=== PATIENT | female | born 1995 | race Caucasian/White ===

== ENCOUNTER 2017-08-22 15:02 | Emergency (ER) | payer MEDICAID ==
[2017-08-22 16:16] LABS: HEMATOCRIT 38.5 % (35.0-47.0); HEMOGLOBIN 13.3 gm/dl (11.6-16.0); MEAN CORPUSCULAR HEMOGLOBIN 32.1 pg (27-33); MEAN CORPUSCULAR HGB CONC 34.5 g/dl (32-36); MEAN PLATELET VOLUME 10.3 fl (7.4-10.4); PLATELET COUNT 195 K/uL (130-400); RED BLOOD COUNT 4.14 M/uL (3.80-5.40); RED CELL DISTRIBUTION WIDTH 11.8 % (11.5-14.5); WHITE BLOOD COUNT W/O DIFF 14.1 K/uL (4.2-12.2)
[2017-08-22 16:22] LABS: URINE APPEARANCE SL CLOUDY; URINE BILIRUBIN NEGATIVE (NEGATIVE); URINE BLOOD MODERATE (NEGATIVE); URINE COLOR YELLOW; URINE GLUCOSE (UA) NEGATIVE (NEGATIVE); URINE KETONE NEGATIVE (NEGATIVE); URINE LEUKOCYTE ESTERASE NEGATIVE (NEGATIVE); URINE NITRITE POSITIVE (NEGATIVE); URINE PROTEIN NEGATIVE (NEGATIVE); URINE UROBILINOGEN 0.2 E.U./dL (0.20 - 1.00)
[2017-08-22 16:36] LABS: URINE BACTERIA 4+
[2017-08-22 16:37] LABS: HCG,QUALITATIVE URINE NEGATIVE (NEGATIVE)
--- NOTE | 2017-08-22 17:06 | Emergency Department Record ---
History of Present Illness - General Chief complaint: ENT Stated complaint: SORE THROAT Time Seen by Provider: 08/22/17 15:42 Source: Patient Mode of Arrival: Ambulatory Limitations: No limitations - History of Present Illness Initial comments: pt has a sore throat and ap that is crampy. she does not know if she is . complaint: Sore throat Onset/Timin -: Days(s) Location: Throat Severity: Mild Severity scale (1-10): 4 Quality: Aching Consistency: Constant Improves with: None Worsens with: None Associated Symptoms: Pain with swallowing, Sore throat, Other (abd cramping) - Related Data Previous Rx's Medication Instructions Recorded Cephalexin [Keflex] 500 mg PO BID #20 cap 08/22/17 Allergies Allergy/AdvReac Type Severity Reaction Status Date / Time red dye AdvReac VOMITING Verified 08/22/17 15:13 Travel Screening - Travel/Exposure Within Last 30 Days Have you traveled within the last 30 days?: No Review of Systems Reviewed: No additional complaints except as noted below Constitutional: Reports: As per HPI. Denies: Chills, Fever, Malaise, Night sweats, Weakness, Weight change Eyes: Reports: As per HPI. Denies: Eye discharge, Eye pain, Photophobia, Vision change ENT: Reports: As per HPI. Denies: Congestion, Dental pain, Ear pain, Epistaxis , Hearing loss, Throat pain Respiratory: Reports: As per HPI. Denies: Cough, Dyspnea, Hemoptysis, Stridor, Wheezes Cardiovascular: Reports: As per HPI. Denies: Arrhythmia, Chest pain, Dyspnea on exertion, Edema, Murmurs, Orthopnea, Palpitations, Paroxysmal nocturnal dyspnea, Rheumatic Fever, Syncope Endocrine: Reports: As per HPI. Denies: Fatigue, Heat or cold intolerance, Polydipsia, Polyuria Gastrointestinal: Reports: As per HPI. Denies: Abdominal pain, Constipation, Diarrhea, Hematemesis, Hematochezia, Melena, Nausea, Vomiting Genitourinary: Reports: As per HPI. Denies: Abnormal menses, Discharge, Dyspareunia, Dysuria, Frequency, Hematuria, Incontinence, Retention, Urgency Musculoskeletal: Reports: As per HPI. Denies: Arthralgia, Back pain, Gout, Joint swelling, Myalgia, Neck pain Skin: Reports: As per HPI. Denies: Bruising, Change in color, Change in hair/ nails, Lesions, Pruritus, Rash Neurological: Reports: As per HPI. Denies: Abnormal gait, Confusion, Headache, Numbness, Paresthesias, Seizure, Tingling, Tremors, Vertigo, Weakness Psychiatric: Reports: As per HPI. Denies: Anxiety, Auditory hallucinations, Depression, Homicidal thoughts, Suicidal thoughts, Visual hallucinations Hematological/Lymphatic: Reports: As per HPI. Denies: Anemia, Blood Clots, Easy bleeding, Easy bruising, Swollen glands Past Medical History - SOCIAL HISTORY Smoking Status: Current every day smoker Alcohol Use: None Drug Use: None - RESPIRATORY Hx Respiratory Disorders: No - CARDIOVASCULAR Hx Cardio Disorders: No - NEURO Hx Neuro Disorders: No - GI Hx GI Disorders: No - Hx Genitourinary Disorders: No - ENDOCRINE Hx Endocrine Disorders: No - MUSCULOSKELETAL Hx Musculoskeletal Disorders: No - PSYCH Hx Psych Problems: No - HEMATOLOGY/ONCOLOGY Hx Hematology/Oncology Disorders: No Family Medical History Any Significant Family History?: No Physical Exam - General General Appearance: Alert, Oriented x3, Cooperative, Mild distress - Head Head exam: Normal inspection - Eye Eye exam: Normal appearance, PERRL, EOMI Pupils: Normal accommodation - ENT ENT exam: Normal exam, Mucous membranes moist, Normal external ear exam, Normal orophraynx Ear exam: Normal external inspection. negative: External canal tenderness Nasal Exam: Normal inspection. negative: Discharge, Sinus tenderness Mouth exam: Normal external inspection, Tongue normal Teeth exam: Normal inspection. negative: Dental caries Throat exam: Tonsillar erythema. negative: Tonsillar exudate - Neck Neck exam: Normal inspection, Full ROM. negative: Tenderness - Respiratory Respiratory exam: Normal lung sounds bilaterally. negative: Respiratory distress - Cardiovascular Cardiovascular Exam: Regular rate, Normal rhythm, Normal heart sounds - GI/Abdominal GI/Abdominal exam: Soft, Normal bowel sounds. negative: Tenderness - Rectal Rectal exam: Deferred - exam: Deferred - Extremities Extremities exam: Normal inspection, Full ROM, Normal capillary refill. negative: Tenderness - Back Back exam: Reports: Normal inspection, Full ROM. Denies: Muscle spasm, Rash noted, Tenderness - Neurological Neurological exam: Alert, CN II-XII intact, Normal gait, Oriented X3 - Psychiatric Psychiatric exam: Normal affect, Normal mood - Skin Skin exam: Dry, Intact, Normal color, Warm Course Vital Signs 08/22/17 15:11 Temperature 100.4 F H Pulse Rate 105 H Respiratory 20 Rate Blood Pressure 121/68 Pulse Ox 99 Medical Decision Making - Lab Data Result diagrams: 08/22/17 16:02 Lab Results 08/22/17 08/22/17 08/22/17 Range/Units 15:20 16:02 16:02 WBC 14.1 H (4.2-12.2) K/uL RBC 4.14 (3.80-5.40) M/uL Hgb 13.3 (11.6-16.0) gm/dl Hct 38.5 (35.0-47.0) % MCV 93.0 (81-97) fl MCH 32.1 (27-33) pg MCHC 34.5 (32-36) g/dl RDW 11.8 (11.5-14.5) % Plt Count 195 (130-400) K/uL MPV 10.3 (7.4-10.4) fl Neutrophils % 85.0 H (47-80) % Eosinophils % Not Reportable Basophils % Not Reportable Lymphocytes 9.0 L (16-45) % Monocytes 6.0 (0-9) % Urine Color Yellow Urine Appearance Sl cloudy Urine pH 6.0 (5.0-8.0) Ur Specific [place] 1.015 (1.002-1.030) Urine Protein Negative (NEGATIVE) Urine Glucose (UA) Negative (NEGATIVE) Urine Ketones Negative (NEGATIVE) Urine Blood Moderate (NEGATIVE) Urine Nitrite Positive H (NEGATIVE) Urine Bilirubin Negative (NEGATIVE) Urine Urobilinogen 0.2 (0.20 - 1.00) E.U./dL Ur Leukocyte Esterase Negative (NEGATIVE) Urine RBC 7 - 10 (NONE SEEN) Urine WBC 3 - 5 (0-2/hpf) U Non-Squamous Epi Cells 7 - 10 /hpf Urine Bacteria 4+ Urine HCG, Qual Negative (NEGATIVE) Monoscreen (NEGATIVE) Group A Strep Screen Negative (NEGATIVE) 08/22/17 Range/Units 16:02 WBC (4.2-12.2) K/uL RBC (3.80-5.40) M/uL Hgb (11.6-16.0) gm/dl Hct (35.0-47.0) % MCV (81-97) fl MCH (27-33) pg MCHC (32-36) g/dl RDW (11.5-14.5) % Plt Count (130-400) K/uL MPV (7.4-10.4) fl Neutrophils % (47-80) % Eosinophils % Basophils % Lymphocytes (16-45) % Monocytes (0-9) % Urine Color Urine Appearance Urine pH (5.0-8.0) Ur Specific [place] (1.002-1.030) Urine Protein (NEGATIVE) Urine Glucose (UA) (NEGATIVE) Urine Ketones (NEGATIVE) Urine Blood (NEGATIVE) Urine Nitrite (NEGATIVE) Urine Bilirubin (NEGATIVE) Urine Urobilinogen (0.20 - 1.00) E.U./dL Ur Leukocyte Esterase (NEGATIVE) Urine RBC (NONE SEEN) Urine WBC (0-2/hpf) U Non-Squamous Epi Cells /hpf Urine Bacteria Urine HCG, Qual (NEGATIVE) Monoscreen Negative (NEGATIVE) Group A Strep Screen (NEGATIVE) Disposition Disposition: Discharge Clinical Impression: Pharyngitis Qualifiers: Pharyngitis/tonsillitis etiology: unspecified etiology Qualified Code(s): J02.9 - Acute pharyngitis, unspecified UTI (urinary tract infection) Qualifiers: Urinary tract infection type: acute cystitis Hematuria presence: without hematuria Qualified Code(s): N30.00 - Acute cystitis without hematuria Disposition: Home, Self-Care Condition: (1) Good Instructions: Pharyngitis (ED), Urinary Tract Infection in Women (ED) Additional Instructions: follow up with family doctor. return sooner if worse. push fluids Prescriptions: Cephalexin [Keflex] 500 mg PO BID #20 cap Quality - Quality Measures Quality Measures: N/A - Blood Pressure Screening Does Patient Have Any of the Following: No Blood Pressure Classification: Pre-Hypertensive BP Reading Systolic Measurement: 121 Diastolic Measurement: 68 Screening for High Blood Pressure: < Pre-Hypertensive BP, F/U Documented > [ G8950] Pre-Hypertensive Follow-up Interventions: Follow-up with rescreen every year.
== END 2017-08-22 17:11 | disposition home or self-care (01) ==
LOC: ER 15:02
DX: J02.9 Acute pharyngitis, unspecified (principal); N30.00 Acute cystitis without hematuria; F17.210 Nicotine dependence, cigarettes, uncomplicated
CPT/HCPCS: 81001; 81025; 85027; 86308; 87880; 99283

== ENCOUNTER 2017-12-27 21:22 | Emergency (ER) | payer MEDICAID ==
--- NOTE | 2017-12-27 21:44 | Emergency Department Record ---
History of Present Illness - General Chief Complaint: Cough Stated Complaint: COUGH,FEVER,SORE THROAT Time Seen by Provider: 12/27/17 21:40 Source: Patient Mode of Arrival: Ambulatory Limitations: No limitations - History of Present Illness Initial Comments: 22 yo female presents to ED for evaluation of cough, sore throat, and body aches that began 3 days ago. Patient reports that she has been using her inhaler at home which has improved some of her symptoms, denies health problems at her baseline. Patient's roommate has been ill with similar symptoms as well. MD Complaint: Cough, Nasal congestion, Sore throat Onset/Timin -: Days(s) Severity: Mild Quality: Aching Consistency: Constant Improves With: Nothing Worsens With: Nothing Context: Sick contacts Associated Symptoms: Cough, Sore throat - Related Data Previous Rx's Medication Instructions Recorded Albuterol Sulfate [Proair Hfa] 1 - 2 puff IH .EVERY 4-6 HOURS PRN 12/27/17 #1 inhaler Oseltamivir Phosphate [Tamiflu] 75 mg PO BID #10 capsule 12/27/17 Allergies Allergy/AdvReac Type Severity Reaction Status Date / Time red dye AdvReac VOMITING Verified 08/22/17 15:13 Travel Screening - Travel/Exposure Within Last 30 Days Have you traveled within the last 30 days?: No - Travel/Exposure Within Last Year Have you traveled outside the [place] in the last year?: No - Additonal Travel Details Have you been exposed to anyone with a communicable illness?: No - Travel Symptoms Symptom Screening: None Review of Systems Constitutional: Denies: Chills, Fever, Malaise, Night sweats Eyes: Denies: Eye discharge, Eye pain ENT: Reports: Congestion. Denies: Ear pain, Epistaxis Respiratory: Reports: Cough. Denies: Dyspnea Cardiovascular: Denies: Chest pain, Dyspnea on exertion Endocrine: Reports: Fatigue. Denies: Heat or cold intolerance Gastrointestinal: Denies: Abdominal pain, Nausea, Vomiting Genitourinary: Denies: Incontinence, Retention Musculoskeletal: Denies: Back pain, Gout Skin: Denies: Bruising, Change in color Neurological: Denies: Abnormal gait, Confusion, Headache, Seizure Psychiatric: Denies: Anxiety Hematological/Lymphatic: Denies: Anemia, Blood Clots Past Medical History - SOCIAL HISTORY Smoking Status: Current every day smoker Alcohol Use: None Drug Use: None - RESPIRATORY Hx Respiratory Disorders: No - CARDIOVASCULAR Hx Cardio Disorders: No - NEURO Hx Neuro Disorders: No - GI Hx GI Disorders: No - Hx Genitourinary Disorders: No - ENDOCRINE Hx Endocrine Disorders: No - MUSCULOSKELETAL Hx Musculoskeletal Disorders: No - PSYCH Hx Psych Problems: No - HEMATOLOGY/ONCOLOGY Hx Hematology/Oncology Disorders: No Family Medical History Any Significant Family History?: No Physical Exam - General General Appearance: Alert, Oriented x3, Cooperative, No acute distress Limitations: No limitations - Head Head exam: Atraumatic, Normocephalic, Normal inspection Head exam detail: negative: Abrasion, Contusion, Harper's sign, General tenderness, Hematoma, Laceration - Eye Eye exam: Normal appearance. negative: Conjunctival injection, Periorbital swelling, Periorbital tenderness, Scleral icterus - ENT Ear exam: negative: Auricular hematoma, Auricular trauma Nasal Exam: negative: Active bleeding, Discharge, Dried blood, Foreign body Mouth exam: negative: Drooling, Laceration, Muffled voice, Tongue elevation Throat exam: Tonsillar erythema. negative: Tonsillomegaly, R peritonsillar mass , L peritonsillar mass - Neck Neck exam: Normal inspection. negative: Meningismus, Tenderness - Respiratory Respiratory exam: Normal lung sounds bilaterally. negative: Rales, Respiratory distress, Rhonchi, Stridor - Cardiovascular Cardiovascular Exam: Regular rate, Normal rhythm, Normal heart sounds - GI/Abdominal GI/Abdominal exam: Soft. negative: Rebound, Rigid, Tenderness - Rectal Rectal exam: Deferred - exam: Deferred - Extremities Extremities exam: Normal inspection. negative: Calf tenderness, Pedal edema, Tenderness - Back Back exam: Denies: CVA tenderness (R), CVA tenderness (L) - Neurological Neurological exam: Alert, Normal gait, Oriented X3 - Psychiatric Psychiatric exam: Normal affect, Normal mood - Skin Skin exam: Normal color. negative: Abrasion Type of lesion: negative: abrasion Course Vital Signs 12/27/17 21:32 Temperature 98.4 F Pulse Rate [ 78 Pulse Ox Probe] Respiratory 20 Rate Blood Pressure 124/72 [Left Arm] Pulse Ox 99 - Reevaluation(s) Reevaluation #1: 12/27/17 22:00 Influenza: Negative Strep: Negative Patient's roommate however is Influenza B positive, will treat the patient with Tamiflu as her symptoms are likely the result of exposure. Disposition Disposition: Discharge Clinical Impression: URI (upper respiratory infection) Qualifiers: URI type: unspecified URI Qualified Code(s): J06.9 - Acute upper respiratory infection, unspecified Disposition: Home, Self-Care Condition: (2) Stable Instructions: Upper Respiratory Infection (ED) Additional Instructions: Return to ED if your symptoms worsen or if you have any concerns. Tamiflu as directed. Follow-up with your family doctor in 3-5 days as directed. Prescriptions: Albuterol Sulfate [Proair Hfa] 1 - 2 puff IH .EVERY 4-6 HOURS PRN #1 inhaler PRN Reason: Difficulty In Breathing Oseltamivir Phosphate [Tamiflu] 75 mg PO BID #10 capsule Forms: Patient Portal Access Time of Disposition: 22:02 Quality - Quality Measures Quality Measures: N/A - Blood Pressure Screening Does Patient Have Any of the Following: No Blood Pressure Classification: Pre-Hypertensive BP Reading Systolic Measurement: 124 Diastolic Measurement: 72 Screening for High Blood Pressure: < Pre-Hypertensive BP, F/U Documented > [ G8950] Pre-Hypertensive Follow-up Interventions: Referral to alternative/primary care provider.
[2017-12-27 22:00] LABS: INFLUENZA A NEGATIVE (NEGATIVE); INFLUENZA B NEGATIVE (NEGATIVE); STREP A SCREEN NEGATIVE (NEGATIVE)
== END 2017-12-27 22:25 | disposition home or self-care (01) ==
LOC: ER 21:22
DX: J06.9 Acute upper respiratory infection, unspecified (principal); R05 Cough; F17.210 Nicotine dependence, cigarettes, uncomplicated
CPT/HCPCS: 87400; 87880; 99282

== ENCOUNTER 2018-01-01 18:32 | Emergency (ER) | payer MEDICAID ==
--- NOTE | 2018-01-01 18:52 | Emergency Department Record ---
History of Present Illness - General Chief Complaint: Cough Stated Complaint: COUGH Time Seen by Provider: 01/01/18 18:48 Source: Patient Mode of Arrival: Ambulatory Limitations: No limitations - History of Present Illness Initial Comments: 22 yo female presents to ED for evaluation of continued cough symptoms following recent ED visit for sore throat symptoms, reports that her roommate was positive for influenza at that time, she tested negative. Patient denies fevers, chills, or body aches. Patient reports that she was at a job interview earlier today and is concerned about starting her training with her cough, is requesting treatment for her cough symptoms. MD Complaint: Cough Onset/Timin -: Week(s) Consistency: Constant Improves With: Nothing Worsens With: Nothing Associated Symptoms: Denies other symptoms Treatments Prior to Arrival: "Cold medicine" - Related Data Previous Rx's Medication Instructions Recorded Albuterol Sulfate [Proair Hfa] 1 - 2 puff IH .EVERY 4-6 HOURS PRN 12/27/17 #1 inhaler Benzonatate [Tessalon] 2 cap PO Q8H PRN #20 cap 01/01/18 Prednisone [Prednisone 20Mg] 20 mg PO TID #15 tab 01/01/18 Allergies Allergy/AdvReac Type Severity Reaction Status Date / Time red dye AdvReac VOMITING Verified 01/01/18 18:45 Travel Screening - Travel/Exposure Within Last 30 Days Have you traveled within the last 30 days?: No - Travel/Exposure Within Last Year Have you traveled outside the [place] in the last year?: No - Additonal Travel Details Have you been exposed to anyone with a communicable illness?: No - Travel Symptoms Symptom Screening: None Review of Systems Constitutional: Denies: Chills, Fever, Malaise, Night sweats Eyes: Denies: Eye discharge, Eye pain ENT: Denies: Congestion, Ear pain, Epistaxis Respiratory: Reports: Cough. Denies: Dyspnea Cardiovascular: Denies: Chest pain, Dyspnea on exertion Endocrine: Denies: Fatigue, Heat or cold intolerance Gastrointestinal: Denies: Abdominal pain, Nausea, Vomiting Genitourinary: Denies: Incontinence, Retention Musculoskeletal: Denies: Arthralgia, Back pain Skin: Denies: Bruising, Change in color Neurological: Denies: Abnormal gait, Confusion, Headache, Numbness, Tingling Psychiatric: Denies: Anxiety Hematological/Lymphatic: Denies: Anemia, Blood Clots Past Medical History - SOCIAL HISTORY Smoking Status: Light tobacco smoker (<10/day) Alcohol Use: None Drug Use: None - RESPIRATORY Hx Respiratory Disorders: No - CARDIOVASCULAR Hx Cardio Disorders: No - NEURO Hx Neuro Disorders: No - GI Hx GI Disorders: No - Hx Genitourinary Disorders: No - ENDOCRINE Hx Endocrine Disorders: No - MUSCULOSKELETAL Hx Musculoskeletal Disorders: No - PSYCH Hx Psych Problems: No - HEMATOLOGY/ONCOLOGY Hx Hematology/Oncology Disorders: No Family Medical History Any Significant Family History?: No Physical Exam - General General Appearance: Alert, Oriented x3, Cooperative, No acute distress Limitations: No limitations - Head Head exam: Atraumatic, Normocephalic, Normal inspection Head exam detail: negative: Abrasion, Contusion, Harper's sign, General tenderness, Hematoma, Laceration - Eye Eye exam: Normal appearance. negative: Conjunctival injection, Periorbital swelling, Periorbital tenderness, Scleral icterus - ENT Ear exam: negative: Auricular hematoma, Auricular trauma Nasal Exam: negative: Active bleeding, Discharge, Dried blood, Foreign body Mouth exam: negative: Drooling, Laceration, Tongue elevation - Neck Neck exam: Normal inspection. negative: Meningismus, Tenderness - Respiratory Respiratory exam: Normal lung sounds bilaterally. negative: Respiratory distress, Rhonchi, Stridor, Wheezes - Cardiovascular Cardiovascular Exam: Regular rate, Normal rhythm, Normal heart sounds - GI/Abdominal GI/Abdominal exam: Soft. negative: Rebound, Rigid, Tenderness - Rectal Rectal exam: Deferred - exam: Deferred - Extremities Extremities exam: Normal inspection. negative: Calf tenderness, Pedal edema, Tenderness - Back Back exam: Denies: CVA tenderness (R), CVA tenderness (L) - Neurological Neurological exam: Alert, Normal gait, Oriented X3 - Psychiatric Psychiatric exam: Normal affect, Normal mood - Skin Skin exam: Normal color. negative: Abrasion Type of lesion: negative: abrasion Course Vital Signs 01/01/18 18:37 Temperature 98.4 F Pulse Rate 87 Respiratory 16 Rate Blood Pressure 146/87 Pulse Ox 99 - Reevaluation(s) Reevaluation #1: 01/01/18 18:58 Patient was seen and examined, lungs are clear on exam, and the patient's symptoms appear c/w bronchitis. Patient's symptoms appear likely viral viral in origin, and she appears stable for discharge at this time on Prednisone and Tessalone for her cough symptoms. Patient agrees with the plan of care as discussed. Disposition Disposition: Discharge Clinical Impression: Bronchitis Disposition: Home, Self-Care Condition: (2) Stable Instructions: Acute Bronchitis (ED) Additional Instructions: Return to ED if your symptoms worsen or if you have any concerns. Tessalon and Prednisone as directed. Follow-up with your family doctor in 3-5 days as directed. Prescriptions: Benzonatate [Tessalon] 2 cap PO Q8H PRN #20 cap PRN Reason: Cough Prednisone [Prednisone 20Mg] 20 mg PO TID #15 tab Forms: Patient Portal Access Time of Disposition: 18:54 Quality - Quality Measures Quality Measures: N/A - Blood Pressure Screening Does Patient Have Any of the Following: No Blood Pressure Classification: Pre-Hypertensive BP Reading Systolic Measurement: 146 Diastolic Measurement: 87 Screening for High Blood Pressure: < Pre-Hypertensive BP, F/U Documented > [ G8950] Pre-Hypertensive Follow-up Interventions: Referral to alternative/primary care provider.
== END 2018-01-01 19:09 | disposition home or self-care (01) ==
LOC: ER 18:32
DX: J02.9 Acute pharyngitis, unspecified (principal); F17.210 Nicotine dependence, cigarettes, uncomplicated
CPT/HCPCS: 99282

== ENCOUNTER 2018-01-16 18:38 | Emergency (ER) | payer MEDICAID ==
[2018-01-16] MEDS ORDERED: ONDANSETRON 4 MG ODT TABLET SL ONE (19:00)
--- NOTE | 2018-01-16 19:04 | Emergency Department Record ---
History of Present Illness - General Chief complaint: Rash Stated complaint: VOMITING,RASH ON BOTH LEGS AND LT BREAST Time Seen by Provider: 01/16/18 18:59 Source: Patient Mode of Arrival: Ambulatory Limitations: No limitations - History of Present Illness Initial comments: 22 yo female presents over a week of rash to the inner thighs and under the left breast. No fever, blisters, weeping, or itching. She has a chronic area on the left scalp. She additionally today has had nausea, vomiting and diarrhea while at work at [employer] all day. No abdominal pain. No blood in the vomit or stools. MD complaint: Rash, Other -: Days(s) (7) Location: Chest, LLE, RLE Severity: Mild Quality: Other (no symptoms) Consistency: Constant Improves with: None Worsens with: None Context: None Associated symptoms: Other (today NVD) Treatments Prior to Arrival: None - Related Data Previous Rx's Medication Instructions Recorded Albuterol Sulfate [Proair Hfa] 1 - 2 puff IH .EVERY 4-6 HOURS PRN 12/27/17 #1 inhaler Clotrimazole [Antifungal] 28 gm TP BID #1 cream..g. 01/16/18 Ketoconazole [Nizoral A-D] 200 ml TP DAILY #1 shampoo 01/16/18 Ondansetron [Zofran Odt] 4 mg PO Q8H #15 tab.rapdis 01/16/18 Allergies Allergy/AdvReac Type Severity Reaction Status Date / Time red dye AdvReac VOMITING Verified 01/01/18 18:45 Review of Systems Constitutional: Denies: Chills, Fever, Malaise Eyes: Denies: Eye discharge ENT: Denies: Congestion, Throat pain Respiratory: Denies: Cough, Dyspnea Cardiovascular: Denies: Chest pain, Syncope Endocrine: Denies: Fatigue Gastrointestinal: Reports: Diarrhea, Nausea, Vomiting. Denies: Abdominal pain Genitourinary: Denies: Abnormal menses, Dysuria, Urgency Musculoskeletal: Denies: Arthralgia, Back pain, Joint swelling, Myalgia, Neck pain Skin: Reports: As per HPI, Rash Neurological: Denies: Confusion, Headache Psychiatric: Denies: Anxiety Hematological/Lymphatic: Denies: Easy bleeding, Easy bruising, Swollen glands Past Medical History - SOCIAL HISTORY Smoking Status: Light tobacco smoker (<10/day) Drug Use: None - RESPIRATORY Hx Respiratory Disorders: No - CARDIOVASCULAR Hx Cardio Disorders: No - NEURO Hx Neuro Disorders: No - GI Hx GI Disorders: No - Hx Genitourinary Disorders: No - ENDOCRINE Hx Endocrine Disorders: No - MUSCULOSKELETAL Hx Musculoskeletal Disorders: No - PSYCH Hx Psych Problems: No - HEMATOLOGY/ONCOLOGY Hx Hematology/Oncology Disorders: No Physical Exam - General General Appearance: Alert, Oriented x3, Cooperative, No acute distress Limitations: No limitations - Head Head exam: Atraumatic, Normal inspection Image of Face/Head: 1 - 1cm scaling area, no pus - Eye Eye exam: Normal appearance, PERRL. negative: Conjunctival injection, Periorbital swelling, Scleral icterus - ENT ENT exam: Normal exam, Mucous membranes moist Ear exam: Normal external inspection Nasal Exam: Normal inspection Mouth exam: Normal external inspection Teeth exam: Normal inspection - Neck Neck exam: Normal inspection - Respiratory Respiratory exam: Normal lung sounds bilaterally. negative: Respiratory distress - Cardiovascular Cardiovascular Exam: Regular rate, Normal rhythm, Normal heart sounds, Other ( annualr rash under left breast, no blisters or weeping) - GI/Abdominal GI/Abdominal exam: Soft, Other (small flat, annular dry areas of macular rash with central clearing). negative: Tenderness - Rectal Rectal exam: Deferred - exam: Deferred - Extremities Extremities exam: Normal inspection, Full ROM, Normal capillary refill. negative: Tenderness - Back Back exam: Reports: Normal inspection, Full ROM. Denies: Muscle spasm, Rash noted, Tenderness - Neurological Neurological exam: Alert, Normal gait, Oriented X3 - Psychiatric Psychiatric exam: Normal affect, Normal mood - Skin Skin exam: Dry, Intact, Rash, Warm. negative: Cyanosis, Erythema, Mottled, Urticaria, Vesicles Course - Reevaluation(s) Reevaluation #1: The rash is consistent with tinea corpora The abdomen is soft. Non tender The patient is well appearing The rash will be treated with topical antifugal 01/16/18 19:05 Disposition Disposition: Discharge Clinical Impression: Nausea vomiting and diarrhea, Tinea corporis Disposition: Home, Self-Care Condition: (1) Good Instructions: Tinea Corporis (ED), Gastroenteritis (ED) Additional Instructions: Call to get a new family doctor Apply the cream to the rash areas. It may take 1-2 weeks to go away Prescriptions: Clotrimazole [Antifungal] 28 gm TP BID #1 cream..g. Ketoconazole [Nizoral A-D] 200 ml TP DAILY #1 shampoo Ondansetron [Zofran Odt] 4 mg PO Q8H #15 tab.rapdis Referrals: JHONATHAN GALLAGHER [CONSULTING PHYSICIAN] - [facility] [Provider Group] Forms: Patient Portal Access Time of Disposition: 19:08 Quality - Quality Measures Quality Measures: N/A - Blood Pressure Screening Does Patient Have Any of the Following: No Blood Pressure Classification: Normal BP Reading Systolic Measurement: 104 Diastolic Measurement: 65 Screening for High Blood Pressure: < Normal BP, F/U Not Required > [G8783] Pre-Hypertensive Follow-up Interventions: Referral to alternative/primary care provider.
[2018-01-16 19:10] LABS: URINE APPEARANCE CLEAR; URINE BILIRUBIN NEGATIVE (NEGATIVE); URINE BLOOD SMALL (NEGATIVE); URINE COLOR YELLOW; URINE GLUCOSE (UA) NEGATIVE (NEGATIVE); URINE KETONE NEGATIVE (NEGATIVE); URINE LEUKOCYTE ESTERASE NEGATIVE (NEGATIVE); URINE NITRITE NEGATIVE (NEGATIVE); URINE PROTEIN NEGATIVE (NEGATIVE); URINE UROBILINOGEN 0.2 E.U./dL (0.20 - 1.00)
[2018-01-16 19:11] LABS: URINE EPITHELIAL CELLS 0 - 2 (FEW); URINE RBC 0 - 2 (NONE SEEN); URINE WBC 0 - 2 (0-2/hpf)
[2018-01-16 19:12] LABS: URINE BACTERIA NONE SEEN
[2018-01-16 19:13] LABS: HCG,QUALITATIVE URINE NEGATIVE (NEGATIVE)
== END 2018-01-16 19:33 | disposition home or self-care (01) ==
LOC: ER 18:38
DX: R11.2 Nausea with vomiting, unspecified (principal); R19.7 Diarrhea, unspecified; B35.4 Tinea corporis; F17.210 Nicotine dependence, cigarettes, uncomplicated
CPT/HCPCS: 81001; 81025; 99283

== ENCOUNTER 2018-01-24 01:58 | Emergency (ER) | payer MEDICAID ==
[2018-01-24] MEDS ORDERED: PROMETHAZINE HCL 25 MG TABLET PO ONE (02:13)
--- NOTE | 2018-01-24 02:19 | Emergency Department Record ---
History of Present Illness - General Chief complaint: Vomiting Stated complaint: "MY HEADS ON FIRE" Time Seen by Provider: 01/24/18 02:02 Source: Patient Mode of Arrival: Ambulatory Limitations: No limitations - History of Present Illness Initial comments: 22 yo female presents to ED for evaluation of vomiting that began approximately 5 hours ago. Patient denies abdominal pain, fevers, chills, or recent illness. Patient denies eating anything out of the ordinary. Patient also reports taking Zofran 1 hours ago which has improved her symptoms, has not vomited since taking the Zofran. Patient denies health problems at her baseline. MD complaint: Nausea, Vomiting Onset/Timin -: Hour(s) Associated Abdominal Pain: No Consistency: Intermittent Improves with: None Worsens with: None Context: Other Associated Symptoms: Denies other symptoms - Related Data Previous Rx's Medication Instructions Recorded Albuterol Sulfate [Proair Hfa] 1 - 2 puff IH .EVERY 4-6 HOURS PRN 12/27/17 #1 inhaler Ketoconazole [Nizoral A-D] 200 ml TP DAILY #1 shampoo 01/16/18 Ondansetron [Zofran Odt] 4 mg PO Q8H #15 tab.rapdis 01/16/18 Allergies Allergy/AdvReac Type Severity Reaction Status Date / Time red dye AdvReac VOMITING Verified 01/01/18 18:45 Travel Screening - Travel/Exposure Within Last 30 Days Have you traveled within the last 30 days?: No - Travel Symptoms Symptom Screening: None Review of Systems Constitutional: Denies: Chills, Fever, Malaise, Night sweats Eyes: Denies: Eye discharge, Eye pain ENT: Denies: Congestion Respiratory: Denies: Cough, Dyspnea Cardiovascular: Denies: Chest pain, Dyspnea on exertion Endocrine: Denies: Fatigue, Heat or cold intolerance Gastrointestinal: Reports: Nausea, Vomiting. Denies: Abdominal pain Genitourinary: Denies: Incontinence, Retention Musculoskeletal: Denies: Arthralgia, Back pain Skin: Denies: Bruising, Change in color Neurological: Denies: Abnormal gait, Confusion, Seizure Psychiatric: Denies: Anxiety Hematological/Lymphatic: Denies: Anemia Past Medical History - SOCIAL HISTORY Smoking Status: Light tobacco smoker (<10/day) Alcohol Use: None Drug Use: None - RESPIRATORY Hx Respiratory Disorders: Yes Hx Asthma: Yes - CARDIOVASCULAR Hx Cardio Disorders: No - NEURO Hx Neuro Disorders: No - GI Hx GI Disorders: No - Hx Genitourinary Disorders: No - ENDOCRINE Hx Endocrine Disorders: No - MUSCULOSKELETAL Hx Musculoskeletal Disorders: No - PSYCH Hx Psych Problems: No - HEMATOLOGY/ONCOLOGY Hx Hematology/Oncology Disorders: No Family Medical History Any Significant Family History?: Yes Hx Diabetes: Grandparents Hx Heart Disease: Father Physical Exam - General General Appearance: Alert, Oriented x3, Cooperative, Mild distress Limitations: No limitations - Head Head exam: Atraumatic, Normocephalic, Normal inspection Head exam detail: negative: Abrasion, Contusion, Harper's sign, General tenderness, Hematoma, Laceration - Eye Eye exam: Normal appearance. negative: Conjunctival injection, Periorbital swelling, Periorbital tenderness, Scleral icterus - ENT Ear exam: negative: Auricular hematoma, Auricular trauma Nasal Exam: negative: Active bleeding, Discharge, Dried blood, Foreign body Mouth exam: negative: Drooling, Laceration, Muffled voice, Tongue elevation - Neck Neck exam: Normal inspection. negative: Meningismus, Tenderness - Respiratory Respiratory exam: Normal lung sounds bilaterally. negative: Rales, Respiratory distress, Rhonchi, Stridor - Cardiovascular Cardiovascular Exam: Regular rate, Normal rhythm, Normal heart sounds - GI/Abdominal GI/Abdominal exam: Soft. negative: Rebound, Rigid, Tenderness - Rectal Rectal exam: Deferred - exam: Deferred - Extremities Extremities exam: Normal inspection. negative: Pedal edema, Tenderness - Back Back exam: Denies: CVA tenderness (R), CVA tenderness (L) - Neurological Neurological exam: Alert, Normal gait, Oriented X3 - Psychiatric Psychiatric exam: Normal affect, Normal mood - Skin Skin exam: Normal color. negative: Abrasion Type of lesion: negative: abrasion Course - Reevaluation(s) Reevaluation #1: 01/24/18 02:27 Patient reports that she [id number] up the phenergan that was administered, will order IM phenergan for her continued symptoms. Reevaluation #2: 01/24/18 02:53 Patient reassessed and reports that she is feeling better, appears stable for discharge at this time with instructions to continue Zofran as directed for recurrent nausea symptoms. Disposition Disposition: Discharge Clinical Impression: Vomiting Qualifiers: Vomiting type: unspecified Vomiting Intractability: non-intractable Nausea presence: unspecified Qualified Code(s): R11.10 - Vomiting, unspecified Disposition: Home, Self-Care Condition: (2) Stable Instructions: Acute Nausea and Vomiting (ED) Additional Instructions: Return to ED if your symptoms worsen or if you have any concerns. Continue Zofran as directed. Follow-up with your family doctor in 3-5 days as directed. Forms: Patient Portal Access, Return to Work/School Time of Disposition: 02:53 Quality - Quality Measures Quality Measures: N/A - Blood Pressure Screening Does Patient Have Any of the Following: No Blood Pressure Classification: Normal BP Reading Systolic Measurement: 118 Diastolic Measurement: 78 Screening for High Blood Pressure: < Normal BP, F/U Not Required > [G8783]
[2018-01-24] MEDS ORDERED: PROMETHAZINE HCL 25 MG/ML VIAL IM ONE (02:28)
== END 2018-01-24 02:56 | disposition home or self-care (01) ==
LOC: ER 01:58
DX: R11.2 Nausea with vomiting, unspecified (principal); F17.210 Nicotine dependence, cigarettes, uncomplicated
CPT/HCPCS: 96372; 99283; J2550; Q0170

== ENCOUNTER 2018-02-26 06:07 | Day surgery (SDC) | payer MEDICAID ==
[~2018-02-26 06:07] MED LIST: ACETAMINOPHEN 1,000 MG/100 ML BTL IV ONE; CEFAZOLIN 2 Gram 2 GM/50 ML BAG IVPB ONE
[2018-02-26] MEDS ORDERED: PROPOFOL 10 MG/ML VIAL IV ONE (06:08)
[2018-02-26] MEDS ORDERED: BUPIVACAINE 0.25% W/EPI MPF 30ML VIAL IVP ONE (06:08)
[2018-02-26] MEDS ORDERED: LIDOCAINE 2% MDV (20MG/ML) 20ML VIAL IV ONE (06:08)
[2018-02-26] MEDS ORDERED: FENTANYL PF 100MCG/2ML VIAL IV ONE (06:08)
[2018-02-26] MEDS ORDERED: MIDAZOLAM HCL 2MG/2ML VIAL IV ONE (06:08)
--- NOTE | 2018-02-27 13:30 | Operative Note ---
DATE OF SURGERY: 02/26/2018 Surgeon: Niles Jo DO PREOPERATIVE DIAGNOSIS: Scalp mass x2. POSTOPERATIVE DIAGNOSIS: Scalp mass x2. OPERATION: Wide excision of scalp mass x2, first one measuring 3 cm in the subcu and the second one is 2 cm in the subcu. Indication: The patient is a 22-year-old female who presented with what appeared to be seborrheic keratoses on her scalp. We did discuss excision versus observation. She desired surgery excision. Risks include but not limited to bleeding, infection, unfavorable cosmetic outcome, recurrence. She understood this fully. Thereafter, consent was signed and questions answered. PROCEDURE: The patient was taken to the operating room and placed in a supine position. Local and IV sedation was given per the department of anesthesia. The patient's head was shaved of hair and prepped and draped in the usual sterile fashion. The area around each mass was anesthetized with a total of 5 mL of 0.25% Sensorcaine with epinephrine. The largest which was 3 cm was ellipsed. This was carried down to the subcutaneous tissue with cautery. This was then passed off the field. This wound was closed with 2-0 nylon. Attention was now turned to the second area where an identical procedure was done. This area did measure 2 cm. Triple antibiotic ointment was placed. She was taken to the recovery room in satisfactory condition. Final pathology pending. [facility]
== END 2018-02-26 09:00 | disposition home or self-care (01) ==
LOC: SUR 06:07
PROVIDERS: ATTEND Surgery
DX: R22.0 Localized swelling, mass and lump, head (principal)
CPT/HCPCS: 81025

== ENCOUNTER 2018-02-27 22:57 | Emergency (ER) | payer MEDICAID ==
--- NOTE | 2018-02-27 23:10 | Emergency Department Record ---
History of Present Illness - General Chief Complaint: Recheck - Other Stated Complaint: HEAD SURGERY,HEAD PAIN Time Seen by Provider: 02/27/18 23:08 Source: Patient Mode of arrival: Ambulatory Limitations: No limitations - History of Present Illness Initial Comments: 22 yo female presents to ED for evaluation of post-operative pain following (2) cysts removed 36 hours ago from the right scalp region. Patient reports that she has been taking her [place] as directed but they are not helping her symptoms. Patient denies drainage from the wounds, and denies redness, fever, or swelling symptoms. Patient denies health problems at her baseline. MD Complaint: Wound re-check Onset/Timin -: Hour(s) Initial Visit For: Other Returns Today for: Wound recheck Symptoms Since Prior Visit: Worsening pain Associated Symptoms: None - Related Data Previous Rx's Medication Instructions Recorded Albuterol Sulfate [Proair Hfa] 1 - 2 puff IH .EVERY 4-6 HOURS PRN 02/16/18 #1 inhaler Ibuprofen [Motrin 600Mg] 600 mg PO Q6H #30 tablet 02/27/18 Allergies Allergy/AdvReac Type Severity Reaction Status Date / Time red dye AdvReac VOMITING Verified 01/01/18 18:45 Review of Systems Constitutional: Denies: Chills, Fever, Malaise, Night sweats Eyes: Denies: Eye discharge, Eye pain ENT: Denies: Congestion, Ear pain, Epistaxis Respiratory: Denies: Cough, Dyspnea Cardiovascular: Denies: Chest pain, Dyspnea on exertion Endocrine: Denies: Fatigue, Heat or cold intolerance Gastrointestinal: Denies: Abdominal pain, Nausea, Vomiting Genitourinary: Denies: Incontinence, Retention Musculoskeletal: Denies: Arthralgia, Back pain Skin: Denies: Bruising, Change in color Neurological: Reports: Headache. Denies: Abnormal gait, Confusion, Seizure Psychiatric: Denies: Anxiety Hematological/Lymphatic: Denies: Anemia, Blood Clots Past Medical History - SOCIAL HISTORY Smoking Status: Light tobacco smoker (<10/day) Drug Use: None - RESPIRATORY Hx Respiratory Disorders: Yes Hx Asthma: Yes (currently not using inhaler, does not have one) - CARDIOVASCULAR Hx Cardio Disorders: No - NEURO Hx Neuro Disorders: Yes Hx Headaches: Yes (occassionally) - GI Hx GI Disorders: Yes Hx Reflux: Yes (occassionally will take an acid res habilitation assistant-otc) - Hx Genitourinary Disorders: Yes - ENDOCRINE Hx Endocrine Disorders: No - MUSCULOSKELETAL Hx Musculoskeletal Disorders: Yes - PSYCH Hx Psych Problems: Yes Hx Anxiety: Yes (sometimes) - HEMATOLOGY/ONCOLOGY Hx Hematology/Oncology Disorders: No Family Medical History Hx Cancer: Grandparents *Cancer Comment: grandfather-liver/pancreas Hx Diabetes: Grandparents Hx Heart Disease: Father Physical Exam - General General Appearance: Alert, Oriented x3, Cooperative, No acute distress, Other ( Flat affect on examination) Limitations: No limitations - Head Head exam: Atraumatic, Other ((2) healing sutured wounds to the right scalp, no draiange from the wounds, no redness, no signs of infection.) Head exam detail: General tenderness, Laceration. negative: Abrasion, Contusion , Harpre's sign, Hematoma - Eye Eye exam: Normal appearance. negative: Conjunctival injection, Periorbital swelling, Periorbital tenderness, Scleral icterus - ENT Ear exam: negative: Auricular hematoma, Auricular trauma Nasal Exam: negative: Active bleeding, Discharge, Dried blood, Foreign body Mouth exam: negative: Drooling, Laceration, Muffled voice, Tongue elevation - Neck Neck exam: Normal inspection. negative: Meningismus, Tenderness - Respiratory Respiratory exam: Normal lung sounds bilaterally. negative: Rales, Respiratory distress, Rhonchi, Stridor - Cardiovascular Cardiovascular Exam: Regular rate, Normal rhythm, Normal heart sounds - GI/Abdominal GI/Abdominal exam: Soft. negative: Rebound, Rigid, Tenderness - Rectal Rectal exam: Deferred - exam: Deferred - Extremities Extremities exam: Normal inspection. negative: Calf tenderness, Pedal edema, Tenderness - Back Back exam: Denies: CVA tenderness (R), CVA tenderness (L) - Neurological Neurological exam: Alert, Normal gait, Oriented X3 - Psychiatric Psychiatric exam: Normal affect, Normal mood - Skin Skin exam: Normal color. negative: Abrasion Type of lesion: negative: abrasion Course Vital Signs 02/27/18 23:06 Temperature 97.6 F Pulse Rate [ 56 L Pulse Ox Probe] Respiratory 16 Rate Blood Pressure 118/76 [Left Arm] Pulse Ox 100 - Reevaluation(s) Reevaluation #1: 02/27/18 23:13 Post-operative wounds are well appearing on examination without signs of infection on examination. Will prescribe Motrin 600 mg as needed in addition to [place] for her post-operative changes with instructions to call Dr. Jo in 1-3 days as for follow-up. Disposition Disposition: Discharge Clinical Impression: Post-op pain Disposition: Home, Self-Care Condition: (2) Stable Instructions: Pain Management After Surgery (GEN) Additional Instructions: Return to ED if your symptoms worsen or if you have any concerns. Motrin 600 mg as directed. Follow-up with Dr. Jo in 1-3 days as directed. Prescriptions: Ibuprofen [Motrin 600Mg] 600 mg PO Q6H #30 tablet Forms: Patient Portal Access Time of Disposition: 23:09 Quality - Quality Measures Quality Measures: N/A - Blood Pressure Screening Does Patient Have Any of the Following: No Blood Pressure Classification: Normal BP Reading Systolic Measurement: 118 Diastolic Measurement: 76 Screening for High Blood Pressure: < Normal BP, F/U Not Required > [G8783]
== END 2018-02-27 23:13 | disposition home or self-care (01) ==
LOC: ER 22:57
DX: G89.18 Other acute postprocedural pain (principal); R51 Headache; F17.210 Nicotine dependence, cigarettes, uncomplicated
CPT/HCPCS: 99282

== ENCOUNTER 2018-04-06 19:25 | Emergency (ER) | payer MEDICAID ==
--- NOTE | 2018-04-06 19:45 | Emergency Department Record ---
History of Present Illness - General Chief complaint: Rash Stated complaint: RASH, MY BE SCABIES Time Seen by Provider: 04/06/18 19:42 Source: Patient Mode of Arrival: Ambulatory Limitations: No limitations - History of Present Illness Initial comments: 22 yo female presents to ED for evaluation of a rash between the toes, reports itching symptoms, denies fevers, chills, or recent illness. Patient reports previous episodes of scabies with similar symptoms. Patient denies fevers, chills, or recent illness. Patient deniers health problems at her baseline. MD complaint: Rash Onset/Timin -: Days(s) Location: L hand, R hand, L foot, R foot Severity: Moderate Consistency: Constant Improves with: None Worsens with: None Context: None Treatments Prior to Arrival: None - Related Data Previous Rx's Medication Instructions Recorded Permethrin [Elimite] 60 gm TP ONCE #1 cream..g. 04/06/18 Allergies Allergy/AdvReac Type Severity Reaction Status Date / Time red dye AdvReac VOMITING Verified 01/01/18 18:45 Travel Screening - Travel/Exposure Within Last 30 Days Have you traveled within the last 30 days?: No Review of Systems Constitutional: Denies: Chills, Fever, Malaise, Night sweats Eyes: Denies: Eye discharge, Eye pain ENT: Denies: Congestion, Ear pain, Epistaxis Respiratory: Denies: Cough, Dyspnea Cardiovascular: Denies: Chest pain, Dyspnea on exertion Endocrine: Denies: Fatigue, Heat or cold intolerance Gastrointestinal: Denies: Abdominal pain, Nausea, Vomiting Genitourinary: Denies: Incontinence, Retention Musculoskeletal: Denies: Arthralgia, Back pain Skin: Reports: Rash. Denies: Bruising, Change in color Neurological: Denies: Confusion, Headache Psychiatric: Denies: Anxiety Hematological/Lymphatic: Denies: Anemia, Blood Clots Past Medical History - SOCIAL HISTORY Smoking Status: Light tobacco smoker (<10/day) - RESPIRATORY Hx Respiratory Disorders: Yes Hx Asthma: Yes (currently not using inhaler, does not have one) - CARDIOVASCULAR Hx Cardio Disorders: No - NEURO Hx Neuro Disorders: Yes Hx Headaches: Yes (occassionally) - GI Hx GI Disorders: Yes Hx Reflux: Yes (occassionally will take an acid deputy clerk-otc) - Hx Genitourinary Disorders: Yes - ENDOCRINE Hx Endocrine Disorders: No - MUSCULOSKELETAL Hx Musculoskeletal Disorders: Yes - PSYCH Hx Psych Problems: Yes Hx Anxiety: Yes (sometimes) - HEMATOLOGY/ONCOLOGY Hx Hematology/Oncology Disorders: No Family Medical History Any Significant Family History?: Yes Hx Cancer: Grandparents *Cancer Comment: grandfather-liver/pancreas Hx Diabetes: Grandparents Hx Heart Disease: Father Physical Exam - General General Appearance: Alert, Oriented x3, Cooperative, No acute distress Limitations: No limitations - Head Head exam: Atraumatic, Normocephalic, Normal inspection Head exam detail: negative: Abrasion, Contusion, Harper's sign, General tenderness, Hematoma, Laceration - Eye Eye exam: Normal appearance. negative: Conjunctival injection, Periorbital swelling, Periorbital tenderness, Scleral icterus - ENT Ear exam: negative: Auricular hematoma, Auricular trauma Nasal Exam: negative: Active bleeding, Discharge, Dried blood, Foreign body Mouth exam: negative: Drooling, Laceration, Muffled voice, Tongue elevation - Neck Neck exam: Normal inspection. negative: Meningismus, Tenderness - Respiratory Respiratory exam: Normal lung sounds bilaterally. negative: Rales, Respiratory distress, Rhonchi, Stridor - Cardiovascular Cardiovascular Exam: Regular rate, Normal rhythm, Normal heart sounds - GI/Abdominal GI/Abdominal exam: Soft. negative: Rebound, Rigid, Tenderness - Rectal Rectal exam: Deferred - exam: Deferred - Extremities Extremities exam: Other (Small abrasions/excoriations between the toes of the right foot, no other areas are present on exmaination.). negative: Calf tenderness, Pedal edema, Tenderness - Back Back exam: Denies: CVA tenderness (R), CVA tenderness (L) - Neurological Neurological exam: Alert, Normal gait, Oriented X3 - Psychiatric Psychiatric exam: Normal affect, Normal mood - Skin Skin exam: Abrasion Type of lesion: abrasion Course Vital Signs 04/06/18 19:33 Temperature 98.4 F Pulse Rate [ 66 Pulse Ox Probe] Respiratory 18 Rate Blood Pressure 106/76 [Left Arm] Pulse Ox 96 - Reevaluation(s) Reevaluation #1: 04/06/18 19:51 Patient's clinical examination appears c/w scabies, will discharge on permetherin cream as directed. Patient appears stable for discharge at this time. Disposition Disposition: Discharge Clinical Impression: Scabies Disposition: Home, Self-Care Condition: (2) Stable Instructions: Scabies (ED) Additional Instructions: Return to ED if your symptoms worsen or if you have any concerns. Permetherin as directed. Follow-up with your family doctor in 3-5 days as directed. Prescriptions: Permethrin [Elimite] 60 gm TP ONCE #1 cream..g. Forms: Patient Portal Access Time of Disposition: 19:45 Quality - Quality Measures Quality Measures: N/A - Blood Pressure Screening Does Patient Have Any of the Following: No Blood Pressure Classification: Normal BP Reading Systolic Measurement: 106 Diastolic Measurement: 76 Screening for High Blood Pressure: < Normal BP, F/U Not Required > [G8783]
== END 2018-04-06 19:51 | disposition home or self-care (01) ==
LOC: ER 19:25
DX: B86 Scabies (principal)
CPT/HCPCS: 99282

== ENCOUNTER 2018-05-03 15:47 | Emergency (ER) | payer SELFPAY ==
--- NOTE | 2018-05-03 16:00 | Emergency Department Record ---
History of Present Illness - General Chief complaint: ENT Stated complaint: EAR PAIN AND [place] Time Seen by Provider: 05/03/18 15:55 Source: Patient Mode of Arrival: Ambulatory Limitations: No limitations - History of Present Illness Initial comments: 22 yo female presents with about three days of cough, sore throat, nasal drainage and right ear pain. The cough is productive with yellow sputum. She has had subjective fevers. No NVD. No rash. No changes in her hearing. Her glands are mildly tender to palpation. MD complaint: Ear pain, Sore throat, Other (nasal drainage, cough) -: Days(s) (3) Location: R ear Severity: Moderate Quality: Aching Consistency: Constant Improves with: None Worsens with: Other Context-Epistaxis: Other Context- Ear: Recent illness, Other Associated Symptoms: Cough, Fever, Rhinorrhea, Sore throat - Related Data Previous Rx's Medication Instructions Recorded Albuterol Sulfate [Proair Hfa] 1 - 2 puff IH .EVERY 4-6 HOURS PRN 05/03/18 #1 inhaler Azithromycin [Zithromax] 250 mg PO DAILY #6 tab 05/03/18 Allergies Allergy/AdvReac Type Severity Reaction Status Date / Time red dye AdvReac VOMITING Verified 05/03/18 15:56 Review of Systems Constitutional: Reports: Fever, Malaise. Denies: Chills Eyes: Denies: Eye discharge, Eye pain, Photophobia, Vision change ENT: Reports: Congestion, Ear pain, Throat pain. Denies: Dental pain, Epistaxis Respiratory: Reports: Cough. Denies: Dyspnea, Hemoptysis, Stridor Cardiovascular: Denies: Chest pain, Palpitations, Syncope Endocrine: Denies: Fatigue Gastrointestinal: Denies: Abdominal pain, Diarrhea, Nausea, Vomiting Genitourinary: Denies: Dysuria, Urgency Musculoskeletal: Denies: Arthralgia, Back pain, Myalgia Skin: Denies: Bruising, Change in color, Rash Neurological: Reports: Headache (Right Ear). Denies: Numbness, Weakness Psychiatric: Denies: Anxiety Hematological/Lymphatic: Reports: As per HPI, Swollen glands. 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) - Hx Genitourinary Disorders: Yes - ENDOCRINE Hx Endocrine Disorders: No - MUSCULOSKELETAL Hx Musculoskeletal Disorders: Yes - PSYCH Hx Psych Problems: Yes Hx Anxiety: Yes (sometimes) - HEMATOLOGY/ONCOLOGY Hx Hematology/Oncology Disorders: No Family Medical History Hx Cancer: Grandparents *Cancer Comment: grandfather-liver/pancreas Hx Diabetes: Grandparents Hx Heart Disease: Father Physical Exam - General General Appearance: Alert, Oriented x3, Cooperative, No acute distress, Other ( Well appearing) Limitations: No limitations - Head Head exam: Atraumatic, Normal inspection - Eye Eye exam: Normal appearance, PERRL. negative: Conjunctival injection, Periorbital swelling, Periorbital tenderness - ENT ENT exam: Mucous membranes moist, Normal orophraynx. negative: Mucous membranes dry, TM's normal bilaterally (Right TM erythema compared to left) Ear exam: Normal external inspection Nasal Exam: Discharge (yellow), Sinus tenderness. negative: Active bleeding, Dried blood Mouth exam: Normal external inspection Teeth exam: Normal inspection Throat exam: Tonsillar erythema. negative: Tonsillomegaly, Tonsillar exudate, R peritonsillar mass, L peritonsillar mass - Neck Neck exam: Normal inspection, Full ROM, Lymphadenopathy (mild anterior cervical , soft and mobile). negative: Meningismus, Tenderness, Thyromegaly - Respiratory Respiratory exam: Normal lung sounds bilaterally. negative: Respiratory distress, Wheezes - Cardiovascular Cardiovascular Exam: Regular rate, Normal rhythm, Normal heart sounds - GI/Abdominal GI/Abdominal exam: Soft. negative: Tenderness - Rectal Rectal exam: Deferred - exam: Deferred - Extremities Extremities exam: Normal inspection, Full ROM, Normal capillary refill. negative: Tenderness - Back Back exam: Reports: Normal inspection, Full ROM. Denies: CVA tenderness (R), CVA tenderness (L), Muscle spasm, Rash noted, Tenderness - Neurological Neurological exam: Alert, Oriented X3 - Psychiatric Psychiatric exam: Normal affect, Normal mood - Skin Skin exam: Dry, Intact, Normal color, Warm Disposition Disposition: Discharge Clinical Impression: Otitis media, Bronchitis Disposition: Home, Self-Care Condition: (1) Good Instructions: Otitis Media (ED) Additional Instructions: Call for a new family doctor Return for a recheck if worse, fever, any new concerns Avoid Red dye if you are allergic Prescriptions: Albuterol Sulfate [Proair Hfa] 1 - 2 puff IH .EVERY 4-6 HOURS PRN #1 inhaler PRN Reason: Difficulty In Breathing Azithromycin [Zithromax] 250 mg PO DAILY #6 tab Forms: Patient Portal Access Time of Disposition: 16:01 Quality - Quality Measures Quality Measures: N/A - Blood Pressure Screening Does Patient Have Any of the Following: No Blood Pressure Classification: Normal BP Reading Systolic Measurement: 119 Diastolic Measurement: 74 Screening for High Blood Pressure: < Normal BP, F/U Not Required > [G8783]
== END 2018-05-03 16:15 | disposition home or self-care (01) ==
LOC: ER 15:47
DX: H66.91 Otitis media, unspecified, right ear (principal); J20.9 Acute bronchitis, unspecified; F17.210 Nicotine dependence, cigarettes, uncomplicated
CPT/HCPCS: 99282

== ENCOUNTER 2018-06-07 18:13 | Emergency (ER) | payer SELFPAY ==
--- NOTE | 2018-06-07 18:22 | Emergency Department Record ---
History of Present Illness - General Chief complaint: Dental Stated complaint: DENTAL PAIN AND BEE STING Time Seen by Provider: 06/07/18 18:20 Source: Patient Mode of Arrival: Ambulatory Limitations: No limitations - History of Present Illness Initial comments: 23 yo female presents to ED for evaluation of upper right dental pain symptoms that began earlier today, reports the sensation of a "hole" between tow of her teeth. Patient reports that she has a "dental infection", has not called her dentist as of the time of presentation to the ED. Patient also reports bee sting to the right medial knee region with "redness" to the area that occurred 4 hours ago. Patient reports that she marked the area and is concerned that her redness is swelling. MD complaint: Tooth pain Onset/Timin -: Days(s) Location: Tooth # 1 - Dental pain Severity: Moderate Quality: Aching Consistency: Constant Improves with: None Worsens with: None Context- Dental: History of dental caries - Related Data Previous Rx's Medication Instructions Recorded Albuterol Sulfate [Proair Hfa] 1 - 2 puff IH .EVERY 4-6 HOURS PRN 05/03/18 #1 inhaler Clindamycin HCl 300 mg PO Q6H #28 capsule 06/07/18 Allergies Allergy/AdvReac Type Severity Reaction Status Date / Time red dye AdvReac VOMITING Verified 06/07/18 18:16 Review of Systems Constitutional: Denies: Chills, Fever, Malaise, Night sweats Eyes: Denies: Eye discharge, Eye pain ENT: Reports: Dental pain. Denies: Ear pain, Epistaxis Respiratory: Denies: Cough, Dyspnea Cardiovascular: Denies: Chest pain, Dyspnea on exertion Endocrine: Denies: Fatigue, Heat or cold intolerance Gastrointestinal: Denies: Abdominal pain, Nausea, Vomiting Genitourinary: Denies: Incontinence, Retention Musculoskeletal: Denies: Back pain, Gout, Joint swelling Skin: Reports: Other (Redness to the medial right knee following bee sting). 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) - Hx Genitourinary Disorders: Yes - ENDOCRINE Hx Endocrine Disorders: No - MUSCULOSKELETAL Hx Musculoskeletal Disorders: Yes - PSYCH Hx Psych Problems: Yes Hx Anxiety: Yes (sometimes) - HEMATOLOGY/ONCOLOGY Hx Hematology/Oncology Disorders: No Family Medical History Any Significant Family History?: Yes Hx Cancer: Grandparents *Cancer Comment: grandfather-liver/pancreas Hx Diabetes: Grandparents Hx Heart Disease: Father Physical Exam - General General Appearance: Alert, Oriented x3, Cooperative, No acute distress, Other ( Well appearing on her mobile phone on evaluation, appears in no distress.) Limitations: No limitations - Head Head exam: Atraumatic, Normocephalic, Normal inspection Head exam detail: negative: Abrasion, Contusion, Harper's sign, General tenderness, Hematoma, Laceration - Eye Eye exam: Normal appearance. negative: Conjunctival injection, Periorbital swelling, Periorbital tenderness, Scleral icterus - ENT Ear exam: negative: Auricular hematoma, Auricular trauma Nasal Exam: negative: Active bleeding, Discharge, Dried blood, Foreign body Mouth exam: negative: Drooling, Laceration, Muffled voice, Tongue elevation Teeth exam: Dental caries, Dental tenderness #. negative: Gingival enlargement Throat exam: negative: Tonsillar erythema, Tonsillomegaly, Tonsillar exudate, R peritonsillar mass, L peritonsillar mass Image of Mouth/Teeth: 1 - Dental pain on examination, no gingival abscess is present. - Neck Neck exam: Normal inspection. negative: Meningismus, Tenderness - Respiratory Respiratory exam: Normal lung sounds bilaterally. negative: Rales, Respiratory distress, Rhonchi, Stridor - Cardiovascular Cardiovascular Exam: Regular rate, Normal rhythm, Normal heart sounds - GI/Abdominal GI/Abdominal exam: Soft. negative: Rebound, Rigid, Tenderness - Rectal Rectal exam: Deferred - exam: Deferred - Extremities Extremities exam: Pedal edema, Tenderness, Other (Area of erythema measuring approximately 8.5 cm in diameter is present to the medial right knee c/w localized bee sting reaction.). negative: Calf tenderness - Back Back exam: Denies: CVA tenderness (R), CVA tenderness (L) - Neurological Neurological exam: Alert, Normal gait, Oriented X3 - Psychiatric Psychiatric exam: Normal affect, Normal mood - Skin Skin exam: Normal color. negative: Abrasion Type of lesion: negative: abrasion Course - Reevaluation(s) Reevaluation #1: 06/07/18 18:32 Patient was seen and examined. dental pain appears c/w possible apical abscess, will initiate treatment with Clindamycin for her symptoms, encouraged the patient to call her dentist for follow-up appointment in 1-3 days. Patient was also counseled that the area of erythema to the right medial thigh is consistent with a localized bee sting reaction, and that increased diameter in the area 0of redness is to be expected shortly after the sting occurs up to the first 48-72 hours. In addition, the clindamycin with provider antibiotic coverage for potential early cellulitis, however there is no clinical evidence for this on examination. Patient is well appearing and stable for discharge with instructions for dental follow-up. Disposition Disposition: Discharge Clinical Impression: Dental caries Disposition: Home, Self-Care Condition: (2) Stable Instructions: Toothache (ED) Additional Instructions: Return to ED if your symptoms worsen or if you have any concerns. Clindamycin as directed. Follow-up with your Dentist in 1-3 days as directed. Prescriptions: Clindamycin HCl 300 mg PO Q6H #28 capsule Forms: Patient Portal Access Time of Disposition: 18:22 Quality - Quality Measures Quality Measures: N/A - Blood Pressure Screening Does Patient Have Any of the Following: No Blood Pressure Classification: Normal BP Reading Systolic Measurement: 109 Diastolic Measurement: 72 Screening for High Blood Pressure: < Normal BP, F/U Not Required > [G8783]
== END 2018-06-07 18:35 | disposition home or self-care (01) ==
LOC: ER 18:13
DX: T63.441A Toxic effect of venom of bees, accidental (unintentional), initial encounter (principal); R22.41 Localized swelling, mass and lump, right lower limb; K02.9 Dental caries, unspecified; F17.210 Nicotine dependence, cigarettes, uncomplicated
CPT/HCPCS: 99282; 99283

== ENCOUNTER 2018-06-08 13:33 | Emergency (ER) | payer SELFPAY ==
--- NOTE | 2018-06-08 13:46 | Emergency Department Record ---
History of Present Illness - General Chief complaint: Rash Stated complaint: RASH ON LEG GETTING WORSE Time Seen by Provider: 06/08/18 13:35 Source: Patient Mode of Arrival: Ambulatory Limitations: No limitations - History of Present Illness Initial comments: 23 yo female presents with a concern about her bee sting that occurred 22 hours ago. No cough, shortness of breath, wheezing, swelling. The local area of the sting remains red and itches. She was unable to fill her prescription. MD complaint: Insect bite/sting Location: RLE Severity: Mild Quality: Other (itches) Consistency: Constant Improves with: None Worsens with: None Context: Witnessed insect bite Associated symptoms: Itching Treatments Prior to Arrival: None - Related Data Previous Rx's Medication Instructions Recorded Albuterol Sulfate [Proair Hfa] 1 - 2 puff IH .EVERY 4-6 HOURS PRN 05/03/18 #1 inhaler Clindamycin HCl 300 mg PO Q6H #28 capsule 06/07/18 Prednisone [Prednisone 20Mg] 20 mg PO BID #10 tab 06/08/18 Prednisone [Prednisone 20Mg] 20 mg PO BID #10 tab 06/08/18 Allergies Allergy/AdvReac Type Severity Reaction Status Date / Time red dye AdvReac VOMITING Verified 06/07/18 18:16 Review of Systems Constitutional: Denies: Chills, Fever, Malaise, Weakness Eyes: Denies: Eye discharge ENT: Denies: Congestion, Throat pain Respiratory: Denies: Cough Cardiovascular: Denies: Chest pain, Syncope Endocrine: Denies: Fatigue Gastrointestinal: Denies: Abdominal pain, Diarrhea, Nausea, Vomiting Genitourinary: Denies: Dysuria Musculoskeletal: Denies: Arthralgia, Back pain, Myalgia Skin: Reports: Change in color, Rash. Denies: Bruising Neurological: Denies: Headache Psychiatric: Denies: Anxiety Hematological/Lymphatic: Denies: Easy bleeding, Easy bruising Past Medical History - SOCIAL HISTORY Smoking Status: Light tobacco smoker (<10/day) Alcohol Use: None Drug Use: None - RESPIRATORY Hx Respiratory Disorders: Yes Hx Asthma: Yes (currently not using inhaler, does not have one) - CARDIOVASCULAR Hx Cardio Disorders: No - NEURO Hx Neuro Disorders: Yes Hx Headaches: Yes (occassionally) - GI Hx GI Disorders: Yes Hx Reflux: Yes (occassionally will take an acid relaster-otc) - Hx Genitourinary Disorders: Yes - ENDOCRINE Hx Endocrine Disorders: No - MUSCULOSKELETAL Hx Musculoskeletal Disorders: Yes - PSYCH Hx Psych Problems: Yes Hx Anxiety: Yes (sometimes) - HEMATOLOGY/ONCOLOGY Hx Hematology/Oncology Disorders: No Family Medical History Any Significant Family History?: Yes Hx Cancer: Grandparents *Cancer Comment: grandfather-liver/pancreas Hx Diabetes: Grandparents Hx Heart Disease: Father Physical Exam - General General Appearance: Alert, Oriented x3, Cooperative, No acute distress Limitations: No limitations - Head Head exam: Normal inspection - Eye Eye exam: Normal appearance. negative: Scleral icterus - ENT ENT exam: Normal exam Ear exam: Normal external inspection Nasal Exam: Normal inspection Mouth exam: Normal external inspection - Neck Neck exam: Normal inspection - Cardiovascular Cardiovascular Exam: Regular rate, Normal rhythm, Normal heart sounds - Extremities Extremities exam: Full ROM, Normal capillary refill. negative: Joint swelling, Pedal edema, Tenderness Image of Full Body: 1 - area of local reaction, no abnormal warmth, no pustules, no drainage - Neurological Neurological exam: Alert, Oriented X3 - Psychiatric Psychiatric exam: negative: Agitated, Anxious - Skin Skin exam: Erythema. negative: Cyanosis Course - Reevaluation(s) Reevaluation #1: I explained to the patient this is not likely an infection She may take over the counter benadryl, ice,prednisone 06/08/18 13:46 Disposition Disposition: Discharge Clinical Impression: Bee sting allergy Disposition: Home, Self-Care Condition: (1) Good Instructions: Insect Bite or Sting (ED) Additional Instructions: Ice the area every 4-6 hours Take over the counter benadryl for itching Prednisone as directed twice daily Prescriptions: Prednisone [Prednisone 20Mg] 20 mg PO BID #10 tab Prednisone [Prednisone 20Mg] 20 mg PO BID #10 tab Forms: Patient Portal Access Time of Disposition: 13:49 Quality - Quality Measures Quality Measures: N/A - Blood Pressure Screening Does Patient Have Any of the Following: No Blood Pressure Classification: Pre-Hypertensive BP Reading Systolic Measurement: 122 Diastolic Measurement: 77 Screening for High Blood Pressure: < Pre-Hypertensive BP, F/U Documented > [ G8950] Pre-Hypertensive Follow-up Interventions: Referral to alternative/primary care provider.
== END 2018-06-08 14:00 | disposition home or self-care (01) ==
LOC: ER 13:33
DX: T63.441A Toxic effect of venom of bees, accidental (unintentional), initial encounter (principal); L29.9 Pruritus, unspecified; F17.210 Nicotine dependence, cigarettes, uncomplicated
CPT/HCPCS: 99282

== ENCOUNTER 2018-06-24 15:58 | Emergency (ER) | payer SELFPAY ==
[2018-06-24] MEDS ORDERED: Diph,Pert(Acell),Tet Vac 0.5 ML SYR IM ONE (16:54)
--- NOTE | 2018-06-24 16:55 | Emergency Department Record ---
History of Present Illness - General Chief Complaint: Laceration(s) Stated Complaint: LAC LT HAND INDEX Time Seen by Provider: 06/24/18 16:52 Mode of Arrival: Ambulatory - History of Present Illness Initial Commments: small lac on the left ring finger to small for sutures Onset/Timin -: Hour(s) Place: Work Context: Accidental - [place] Coma Scale Eye Response: (4) Open spontaneously Motor Response: (6) Obeys commands Verbal Response: (5) Oriented [place] Total: 15 - Related Data Allergies Allergy/AdvReac Type Severity Reaction Status Date / Time red dye AdvReac VOMITING Verified 06/24/18 16:09 Travel Screening - Travel/Exposure Within Last 30 Days Have you traveled within the last 30 days?: No - Travel/Exposure Within Last Year Have you traveled outside the [place] in the last year?: No - Additonal Travel Details Have you been exposed to anyone with a communicable illness?: No - Travel Symptoms Symptom Screening: None Review of Systems Reviewed: No additional complaints except as noted below Constitutional: Reports: As per HPI. Denies: Chills, Fever, Malaise, Night sweats, Weakness, Weight change Eyes: Reports: As per HPI. Denies: Eye discharge, Eye pain, Photophobia, Vision change ENT: Reports: As per HPI. Denies: Congestion, Dental pain, Ear pain, Epistaxis , Hearing loss, Throat pain Respiratory: Reports: As per HPI. Denies: Cough, Dyspnea, Hemoptysis, Stridor, Wheezes Cardiovascular: Reports: As per HPI. Denies: Arrhythmia, Chest pain, Dyspnea on exertion, Edema, Murmurs, Orthopnea, Palpitations, Paroxysmal nocturnal dyspnea, Rheumatic Fever, Syncope Endocrine: Reports: As per HPI. Denies: Fatigue, Heat or cold intolerance, Polydipsia, Polyuria Gastrointestinal: Reports: As per HPI. Denies: Abdominal pain, Constipation, Diarrhea, Hematemesis, Hematochezia, Melena, Nausea, Vomiting Genitourinary: Reports: As per HPI. Denies: Abnormal menses, Discharge, Dyspareunia, Dysuria, Frequency, Hematuria, Incontinence, Retention, Urgency Musculoskeletal: Reports: As per HPI. Denies: Arthralgia, Back pain, Gout, Joint swelling, Myalgia, Neck pain Skin: Reports: As per HPI. Denies: Bruising, Change in color, Change in hair/ nails, Lesions, Pruritus, Rash Neurological: Reports: As per HPI. Denies: Abnormal gait, Confusion, Headache, Numbness, Paresthesias, Seizure, Tingling, Tremors, Vertigo, Weakness Psychiatric: Reports: As per HPI. Denies: Anxiety, Auditory hallucinations, Depression, Homicidal thoughts, Suicidal thoughts, Visual hallucinations Hematological/Lymphatic: Reports: As per HPI. 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) - Hx Genitourinary Disorders: Yes - ENDOCRINE Hx Endocrine Disorders: No - MUSCULOSKELETAL Hx Musculoskeletal Disorders: Yes - PSYCH Hx Psych Problems: Yes Hx Anxiety: Yes (sometimes) - HEMATOLOGY/ONCOLOGY Hx Hematology/Oncology Disorders: No Family Medical History Any Significant Family History?: No Hx Cancer: Grandparents *Cancer Comment: grandfather-liver/pancreas Hx Diabetes: Grandparents Hx Heart Disease: Father Physical Exam - General General Appearance: Alert, Oriented x3, Cooperative, No acute distress - Head Head exam: Normal inspection - Eye Eye exam: Normal appearance, PERRL Pupils: Normal accommodation - ENT ENT exam: Normal exam, Mucous membranes moist, Normal external ear exam, Normal orophraynx, TM's normal bilaterally Ear exam: Normal external inspection. negative: External canal tenderness Nasal Exam: Normal inspection. negative: Discharge, Sinus tenderness Mouth exam: Normal external inspection, Tongue normal Teeth exam: Normal inspection. negative: Dental caries Throat exam: Normal inspection. negative: Tonsillar erythema, Tonsillar exudate - Neck Neck exam: Normal inspection, Full ROM. negative: Tenderness - Respiratory Respiratory exam: Normal lung sounds bilaterally. negative: Respiratory distress - Cardiovascular Cardiovascular Exam: Regular rate, Normal rhythm, Normal heart sounds - GI/Abdominal GI/Abdominal exam: Soft, Normal bowel sounds. negative: Tenderness - Rectal Rectal exam: Deferred - exam: Deferred - Extremities Extremities exam: Normal inspection, Full ROM, Normal capillary refill. negative: Tenderness - Back Back exam: Reports: Normal inspection, Full ROM. Denies: Muscle spasm, Rash noted, Tenderness - Neurological Neurological exam: Alert, Normal gait, Oriented X3, Reflexes normal - Psychiatric Psychiatric exam: Normal affect, Normal mood - Skin Skin exam: Dry, Intact, Normal color, Warm Course Vital Signs 06/24/18 16:02 Pulse Rate 61 Respiratory 16 Rate Blood Pressure 113/78 Pulse Ox 98 - Reevaluation(s) Reevaluation #1: No sutures requred 06/24/18 16:55 Disposition Clinical Impression: Laceration of finger Qualifiers: Encounter type: initial encounter Finger: index finger Damage to nail status: without damage Foreign body presence: without foreign body Laterality: left Qualified Code(s): S61.211A - Laceration without foreign body of left index finger without damage to nail, initial encounter Disposition: Home, Self-Care Condition: (1) Good Instructions: Laceration (ED) Additional Instructions: wash daily keep a bandaide on finger follow up with family DrJericho Time of Disposition: 16:55 Quality - Quality Measures Quality Measures: N/A - Blood Pressure Screening Does Patient Have Any of the Following: No Blood Pressure Classification: Normal BP Reading Systolic Measurement: 113 Diastolic Measurement: 78 Screening for High Blood Pressure: < Normal BP, F/U Not Required > [G8783]
== END 2018-06-24 17:00 | disposition home or self-care (01) ==
LOC: ER 15:58
DX: S61.215A Laceration without foreign body of left ring finger without damage to nail, initial encounter (principal); W26.0XXA Contact with knife, initial encounter; F17.210 Nicotine dependence, cigarettes, uncomplicated; Y99.0 Civilian activity done for income or pay
CPT/HCPCS: 90715; 96372; 99282

== ENCOUNTER 2018-07-16 15:41 | Emergency (ER) | payer MEDICAID ==
--- NOTE | 2018-07-16 15:58 | Emergency Department Record ---
History of Present Illness - General Chief complaint: Nausea, Vomiting, Diarrhea Stated complaint: VOMITTING,DIARRHEA, Time Seen by Provider: 07/16/18 15:57 Source: Patient Mode of Arrival: Ambulatory Limitations: No limitations - History of Present Illness Initial comments: The patient is here due to the acute onset of nausea, vomiting, and diarrhea over the last 10 hours. She has had multiple episodes of each. There has been no reported fever, chills, AP, blood in the stool or vomit, bad food exposure or travel. The patient took her last Zofran and now is MUCH better. She would like a script for more. MD complaint: Diarrhea, Nausea, Vomiting Onset/Timin -: Hour(s) Description of Vomiting: Bilious Description of Diarrhea: Water Associated Abdominal Pain: No Radiation: None Improves with: Medication Worsens with: Eating Associated Symptoms: Denies other symptoms - Related Data Previous Rx's Medication Instructions Recorded Ondansetron [Zofran Odt] 4 mg SL .Q4-6H PRN #10 tab.rapdis 07/16/18 Allergies Allergy/AdvReac Type Severity Reaction Status Date / Time red dye AdvReac VOMITING Verified 07/16/18 15:56 Travel Screening - Travel/Exposure Within Last 30 Days Have you traveled within the last 30 days?: No - Travel/Exposure Within Last Year Have you traveled outside the [place] in the last year?: No - Additonal Travel Details Have you been exposed to anyone with a communicable illness?: No - Travel Symptoms Symptom Screening: Fever (Subjective), Diarrhea, Vomiting, Chills Review of Systems Constitutional: Denies: Chills, Fever Eyes: Denies: Eye discharge ENT: Denies: Congestion Respiratory: Denies: Cough, Dyspnea Past Medical History - SOCIAL HISTORY Smoking Status: Light tobacco smoker (<10/day) Alcohol Use: None Drug Use: None - RESPIRATORY Hx Respiratory Disorders: Yes Hx Asthma: Yes (currently not using inhaler, does not have one) - CARDIOVASCULAR Hx Cardio Disorders: No - NEURO Hx Neuro Disorders: Yes Hx Headaches: Yes (occassionally) - GI Hx GI Disorders: Yes Hx Reflux: Yes (occassionally will take an acid 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 dealer-otc) - Hx Genitourinary Disorders: No - ENDOCRINE Hx Endocrine Disorders: No - MUSCULOSKELETAL Hx Musculoskeletal Disorders: Yes - PSYCH Hx Psych Problems: Yes Hx Anxiety: Yes (sometimes) - HEMATOLOGY/ONCOLOGY Hx Hematology/Oncology Disorders: No Family Medical History Any Significant Family History?: Yes Hx Cancer: Grandparents *Cancer Comment: grandfather-liver/pancreas Hx Diabetes: Grandparents Hx Heart Disease: Father Physical Exam - General General Appearance: Alert, Oriented x3, Cooperative, No acute distress - Head Head exam: Atraumatic, Normocephalic, Normal inspection - Eye Eye exam: Normal appearance, PERRL, EOMI - ENT Throat exam: Normal inspection. negative: Tonsillar erythema, Tonsillar exudate - Neck Neck exam: Normal inspection, Full ROM. negative: Tenderness - Respiratory Respiratory exam: Normal lung sounds bilaterally. negative: Respiratory distress - Cardiovascular Cardiovascular Exam: Regular rate, Normal rhythm, Normal heart sounds - GI/Abdominal GI/Abdominal exam: Soft, Normal bowel sounds. negative: Distended, Guarding, Hypoactive bowel sounds, Mass, Rebound, Rigid, Tenderness - Extremities Extremities exam: Normal inspection, Full ROM, Normal capillary refill. negative: Tenderness - Neurological Neurological exam: Alert, Normal gait, Oriented X3. negative: Abnormal gait, Motor sensory deficit Course Vital Signs 07/16/18 15:45 Temperature 97.4 F L Pulse Rate 78 Respiratory 18 Rate Blood Pressure 119/74 Pulse Ox 98 - Reevaluation(s) Reevaluation #1: The patient is doing very well at this time. The Zofran she took from home took care of her nausea and vomiting. She is drinking fluids well and is ready for home. 07/16/18 16:14 Medical Decision Making - Data Complexity MDM Data: Labs Ordered and/or Reviewed Disposition Disposition: Discharge Clinical Impression: Vomiting and diarrhea Disposition: Home, Self-Care Condition: (2) Stable Instructions: Acute Nausea and Vomiting (ED) Additional Instructions: Drink plenty of fluids and use the Zofran for nausea. Please see your family doctor later this week if not better. Return to the ER for any worsening symptoms. Prescriptions: Ondansetron [Zofran Odt] 4 mg SL .Q4-6H PRN #10 tab.rapdis PRN Reason: Nausea Forms: Patient Portal Access Time of Disposition: 16:16 Quality - Quality Measures Quality Measures: N/A - Blood Pressure Screening View Details: Yes Does Patient Have Any of the Following: No Blood Pressure Classification: Normal BP Reading Systolic Measurement: 119 Diastolic Measurement: 74 Screening for High Blood Pressure: < Normal BP, F/U Not Required > [G5967]
[2018-07-16 16:13] LABS: URINE BILIRUBIN NEGATIVE (NEGATIVE); URINE BLOOD TRACE-I (NEGATIVE); URINE COLOR YELLOW; URINE GLUCOSE (UA) NEGATIVE (NEGATIVE); URINE KETONE NEGATIVE (NEGATIVE); URINE LEUKOCYTE ESTERASE NEGATIVE (NEGATIVE); URINE NITRITE NEGATIVE (NEGATIVE); URINE PROTEIN NEGATIVE (NEGATIVE); URINE UROBILINOGEN 0.2 E.U./dL (0.20 - 1.00)
[2018-07-16 16:14] LABS: URINE APPEARANCE SL CLOUDY
[2018-07-16 16:19] LABS: HCG,QUALITATIVE URINE NEGATIVE (NEGATIVE); URINE MUCUS LIGHT; URINE RBC 0 - 2 (NONE SEEN); URINE WBC NONE SEEN (0-2/hpf)
== END 2018-07-16 16:27 | disposition home or self-care (01) ==
LOC: ER 15:41
DX: R11.2 Nausea with vomiting, unspecified (principal); R19.7 Diarrhea, unspecified; F17.210 Nicotine dependence, cigarettes, uncomplicated
CPT/HCPCS: 81001; 81025; 99282

== ENCOUNTER 2018-10-07 16:17 | Emergency (ER) | payer MEDICAID ==
--- NOTE | 2018-10-07 17:49 | Emergency Department Record ---
History of Present Illness - General Chief Complaint: Cough Stated Complaint: COUGH,COUGHING UP YELLOWISH MUCUS Time Seen by Provider: 10/07/18 17:32 Source: Patient Mode of Arrival: Ambulatory Limitations: No limitations - History of Present Illness Initial Comments: 23 yo female presents to ED for evaluation of cough symptoms for the past 7-10 days. Patient denies fevers, chills, or sore throat symptoms. Patient denies receiving a fluy shot this year as "I always get sick from those". Patient also reports that she has been under a lot of stress of late, has resulted in decreased appetite. MD Complaint: Cough Onset/Timin -: Days(s) Severity: Moderate Severity scale (1-10): 5 Consistency: Constant Improves With: Nothing Worsens With: Nothing Associated Symptoms: Denies other symptoms Treatments Prior to Arrival: None - Related Data Home Medications Medication Instructions Recorded Confirmed Last Taken Albuterol Sulfate [Ventolin Hfa] 1 - 2 puff IH .EVERY 4-6 HOURS PRN 10/07/18 1 Week Ago ~09/30/18 Previous Rx's Medication Instructions Recorded Amoxicillin [Amoxil] 875 mg PO BID #20 tab 10/07/18 Allergies Allergy/AdvReac Type Severity Reaction Status Date / Time red dye AdvReac VOMITING Verified 10/07/18 17:19 Travel Screening - Travel/Exposure Within Last 30 Days Have you traveled within the last 30 days?: No - Travel/Exposure Within Last Year Have you traveled outside the [place] in the last year?: No - Additonal Travel Details Have you been exposed to anyone with a communicable illness?: No - Travel Symptoms Symptom Screening: None Review of Systems Constitutional: Denies: Chills, Fever, Malaise, Night sweats Eyes: Denies: Eye discharge, Eye pain ENT: Reports: Congestion. Denies: Ear pain, Epistaxis, Throat pain Respiratory: Reports: Cough. Denies: Dyspnea Cardiovascular: Denies: Chest pain, Dyspnea on exertion, Palpitations Endocrine: Denies: Fatigue, Heat or cold intolerance Gastrointestinal: Denies: Abdominal pain, Nausea, Vomiting Genitourinary: Denies: Incontinence, Retention Musculoskeletal: Denies: Arthralgia, Back pain Skin: Denies: Bruising, Change in color Neurological: Denies: Abnormal gait, Confusion, Tingling, Tremors Psychiatric: Denies: Anxiety Hematological/Lymphatic: Denies: Anemia, Blood Clots Past Medical History - SOCIAL HISTORY Smoking Status: Light tobacco smoker (<10/day) Alcohol Use: Rare Drug Use: None - RESPIRATORY Hx Respiratory Disorders: Yes Hx Asthma: Yes (currently not using inhaler, does not have one) Hx Bronchitis: Yes - CARDIOVASCULAR Hx Cardio Disorders: No - NEURO Hx Neuro Disorders: Yes Hx Headaches: Yes (occassionally) - GI Hx GI Disorders: Yes Hx Reflux: Yes (occassionally will take an acid 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) - Hx Genitourinary Disorders: No - ENDOCRINE Hx Endocrine Disorders: No - MUSCULOSKELETAL Hx Musculoskeletal Disorders: Yes - PSYCH Hx Psych Problems: Yes Hx Anxiety: Yes (sometimes) - HEMATOLOGY/ONCOLOGY Hx Hematology/Oncology Disorders: No Family Medical History Any Significant Family History?: Yes Hx Cancer: Grandparents *Cancer Comment: grandfather-liver/pancreas Hx Diabetes: Grandparents Hx Heart Disease: Father Physical Exam - General General Appearance: Alert, Oriented x3, Cooperative, No acute distress, Other ( ON her cell phone during examination, well appearing.) Limitations: No limitations - Head Head exam: Atraumatic, Normocephalic, Normal inspection Head exam detail: negative: Abrasion, Contusion, Harper's sign, General tenderness, Hematoma, Laceration - Eye Eye exam: Normal appearance. negative: Conjunctival injection, Periorbital swelling, Periorbital tenderness, Scleral icterus - ENT ENT exam: Normal orophraynx Ear exam: negative: Auricular hematoma, Auricular trauma Nasal Exam: negative: Active bleeding, Discharge, Dried blood, Foreign body, Sinus tenderness Mouth exam: negative: Drooling, Laceration, Muffled voice, Tongue elevation Throat exam: negative: Tonsillar erythema, Tonsillomegaly, R peritonsillar mass , L peritonsillar mass - Neck Neck exam: Normal inspection. negative: Meningismus, Tenderness - Respiratory Respiratory exam: Normal lung sounds bilaterally. negative: Respiratory distress, Rhonchi, Stridor, Wheezes - Cardiovascular Cardiovascular Exam: Regular rate, Normal rhythm, Normal heart sounds - GI/Abdominal GI/Abdominal exam: Soft. negative: Pulsatile mass, Rebound, Rigid, Tenderness - Rectal Rectal exam: Deferred - exam: Deferred - Extremities Extremities exam: Normal inspection. negative: Calf tenderness, Pedal edema, Tenderness - Back Back exam: Denies: CVA tenderness (R), CVA tenderness (L) - Neurological Neurological exam: Alert, Normal gait, Oriented X3 - Psychiatric Psychiatric exam: Normal affect, Normal mood - Skin Skin exam: Normal color. negative: Abrasion Type of lesion: negative: abrasion Course Vital Signs 10/07/18 17:11 Temperature 97.5 F L Pulse Rate 68 Respiratory 18 Rate Blood Pressure 109/71 Pulse Ox 98 - Reevaluation(s) Reevaluation #1: 10/07/18 18:30 Influenza: Negative Will treat the patient with amoxicillin as directed for her URI symptoms Patient overall is well appearing and stable for discharge at this time. Disposition Disposition: Discharge Clinical Impression: URI (upper respiratory infection) Qualifiers: URI type: unspecified URI Qualified Code(s): J06.9 - Acute upper respiratory infection, unspecified Disposition: Home, Self-Care Condition: (2) Stable Instructions: Upper Respiratory Infection (ED) Additional Instructions: Return to ED if your symptoms worsen or if you have any concerns. Follow-up with your family doctor in 3-5 days as directed. Amoxicillin as directed. Prescriptions: Amoxicillin [Amoxil] 875 mg PO BID #20 tab Forms: Patient Portal Access Time of Disposition: 17:49 Quality - Quality Measures Quality Measures: N/A - Blood Pressure Screening Does Patient Have Any of the Following: No Blood Pressure Classification: Normal BP Reading Systolic Measurement: 109 Diastolic Measurement: 71 Screening for High Blood Pressure: < Normal BP, F/U Not Required > [G8783]
[2018-10-07 18:17] LABS: INFLUENZA A NEGATIVE (NEGATIVE); INFLUENZA B NEGATIVE (NEGATIVE)
== END 2018-10-07 18:49 | disposition home or self-care (01) ==
LOC: ER 16:17
DX: J06.9 Acute upper respiratory infection, unspecified (principal); R05 Cough; F17.210 Nicotine dependence, cigarettes, uncomplicated
CPT/HCPCS: 87400; 99282

== ENCOUNTER 2018-12-02 23:15 | Emergency (ER) | payer MEDICAID ==
--- NOTE | 2018-12-03 00:03 | Emergency Department Record ---
History of Present Illness - General Chief complaint: Vomiting Stated complaint: VOMITING Time Seen by Provider: 12/03/18 00:00 Source: Patient Mode of Arrival: Ambulatory Limitations: No limitations - History of Present Illness Initial comments: 23 yo female presents to ED for evaluation "all day long". Patient denies abdominal pain symptoms, reports a history of chronic intermittent vomiting that she takes Zofran for at home. Patient reports "I called into work, I was supposed to be there at 4:00. I need a work note and a prescription for Zofran ". complaint: Vomiting Onset/Timin -: Days(s) Associated Abdominal Pain: No Consistency: Intermittent Improves with: None Worsens with: None Associated Symptoms: Denies other symptoms - Related Data Previous Rx's Medication Instructions Recorded Ondansetron HCl [Zofran] 4 mg PO Q6H PRN #3 tablet 12/03/18 Allergies Allergy/AdvReac Type Severity Reaction Status Date / Time red dye AdvReac VOMITING Verified 10/07/18 17:19 Travel Screening - Travel/Exposure Within Last 30 Days Have you traveled within the last 30 days?: No - Travel Symptoms Symptom Screening: None Review of Systems Constitutional: Denies: Chills, Fever, Malaise, Night sweats Eyes: Denies: Eye discharge, Eye pain ENT: Denies: Congestion, Ear pain, Epistaxis Respiratory: Denies: Cough, Dyspnea Cardiovascular: Denies: Chest pain, Dyspnea on exertion Endocrine: Denies: Fatigue, Heat or cold intolerance Gastrointestinal: Reports: Nausea, Vomiting. Denies: Abdominal pain Genitourinary: Denies: Incontinence, Retention Musculoskeletal: Denies: Arthralgia, Back pain Skin: Denies: Bruising, Change in color Neurological: Denies: Abnormal gait, Confusion, Headache, Tingling, Tremors Psychiatric: Denies: Anxiety Hematological/Lymphatic: Denies: Anemia, Blood Clots Past Medical History - SOCIAL HISTORY Smoking Status: Light tobacco smoker (<10/day) - RESPIRATORY Hx Respiratory Disorders: Yes Hx Asthma: Yes (currently not using inhaler, does not have one) Hx Bronchitis: Yes - CARDIOVASCULAR Hx Cardio Disorders: No - NEURO Hx Neuro Disorders: Yes Hx Headaches: Yes (occassionally) - GI Hx GI Disorders: Yes Hx Reflux: Yes (occassionally will take an acid body painter-otc) - Hx Genitourinary Disorders: No - ENDOCRINE Hx Endocrine Disorders: No - MUSCULOSKELETAL Hx Musculoskeletal Disorders: Yes - PSYCH Hx Psych Problems: Yes Hx Anxiety: Yes (sometimes) - HEMATOLOGY/ONCOLOGY Hx Hematology/Oncology Disorders: No Family Medical History Any Significant Family History?: Yes Hx Cancer: Grandparents *Cancer Comment: grandfather-liver/pancreas Hx Diabetes: Grandparents Hx Heart Disease: Father Physical Exam - General General Appearance: Alert, Oriented x3, Cooperative, No acute distress, Other ( Patient will not look up from her phone for the duration of her ED evaluation.) Limitations: No limitations - Head Head exam: Atraumatic, Normocephalic, Normal inspection Head exam detail: negative: Abrasion, Contusion, Harper's sign, General tenderness, Hematoma, Laceration - Eye Eye exam: Normal appearance. negative: Conjunctival injection, Periorbital swelling, Periorbital tenderness, Scleral icterus - ENT Ear exam: negative: Auricular hematoma, Auricular trauma Nasal Exam: negative: Active bleeding, Discharge, Dried blood, Foreign body Mouth exam: negative: Drooling, Laceration, Muffled voice, Tongue elevation - Neck Neck exam: Normal inspection. negative: Meningismus, Tenderness - Respiratory Respiratory exam: Normal lung sounds bilaterally. negative: Respiratory distress, Rhonchi, Stridor, Wheezes - Cardiovascular Cardiovascular Exam: Regular rate, Normal rhythm, Normal heart sounds - GI/Abdominal GI/Abdominal exam: Soft. negative: Distended, Rebound, Rigid, Tenderness - Rectal Rectal exam: Deferred - exam: Deferred - Extremities Extremities exam: Normal inspection. negative: Pedal edema, Tenderness - Back Back exam: Denies: CVA tenderness (R), CVA tenderness (L) - Neurological Neurological exam: Alert, Normal gait, Oriented X3 - Psychiatric Psychiatric exam: Normal affect, Normal mood - Skin Skin exam: Normal color. negative: Abrasion Type of lesion: negative: abrasion Course Vital Signs 12/02/18 23:33 Temperature 98.5 F Pulse Rate [ 79 Pulse Ox Probe] Respiratory 20 Rate Blood Pressure 119/76 [Left Arm] Pulse Ox 96 - Reevaluation(s) Reevaluation #1: 12/03/18 00:12 patient is well appearing on examination, benign abdominal exam. Patient was informed that a work note for 8 hours prior cannot be provided. Will prescribe Zofran #3 for her vomiting symptoms with instructions for her to follow-up with her PCP for her chronic vomiting care. Disposition Disposition: Discharge Clinical Impression: History of vomiting Disposition: Home, Self-Care Condition: (2) Stable Instructions: Acute Nausea and Vomiting (ED) Additional Instructions: Return to ED if your symptoms worsen or if you have any concerns. Zofran as directed. Follow-up with your family doctor in 3-5 days as directed. Prescriptions: Ondansetron HCl [Zofran] 4 mg PO Q6H PRN #3 tablet PRN Reason: Nausea/Vomiting Forms: Patient Portal Access Time of Disposition: 00:03 Quality - Quality Measures Quality Measures: N/A - Blood Pressure Screening Does Patient Have Any of the Following: No Blood Pressure Classification: Normal BP Reading Systolic Measurement: 119 Diastolic Measurement: 76 Screening for High Blood Pressure: < Normal BP, F/U Not Required > [G8783]
== END 2018-12-03 00:09 | disposition home or self-care (01) ==
LOC: ER 23:15
DX: R11.10 Vomiting, unspecified (principal); F17.210 Nicotine dependence, cigarettes, uncomplicated
CPT/HCPCS: 99281

== ENCOUNTER 2018-12-08 23:42 | Emergency (ER) | payer MEDICAID ==
--- NOTE | 2018-12-08 23:53 | Emergency Department Record ---
History of Present Illness - General Chief Complaint: General Stated Complaint: CHEST PAIN Time Seen by Provider: 12/08/18 23:43 Source: Patient Mode of Arrival: Ambulatory Limitations: No limitations - History of Present Illness Initial comments: 23 yo female presents to ED for evaluation of "chest pain", reports that she has been drinking "8 mountain dews/day" for the past several days. Patient reports that her pain symptoms have been present for 8 hours, constant. Patient denies fevers, chills, cough, or recent illness. Patient denies history of DVT, lower extremity swelling, or use of OCPs. Patient does not have health problems at her baseline. Onset/Timin -: Hour(s) Quality: Aching Consistency: Constant Improves with: None Worsens with: None Associated Symptoms: Denies other symptoms Treatments Prior to Arrival: None - [place] Coma Scale Eye Response: (4) Open spontaneously Motor Response: (6) Obeys commands Verbal Response: (5) Oriented [place] Total: 15 - Related Data Previous Rx's Medication Instructions Recorded Ondansetron HCl [Zofran] 4 mg PO Q6H PRN #3 tablet 12/03/18 Allergies Allergy/AdvReac Type Severity Reaction Status Date / Time red dye AdvReac VOMITING Verified 10/07/18 17:19 Travel Screening - Travel/Exposure Within Last 30 Days Have you traveled within the last 30 days?: No - Travel/Exposure Within Last Year Have you traveled outside the [place] in the last year?: No - Additonal Travel Details Have you been exposed to anyone with a communicable illness?: No - Travel Symptoms Symptom Screening: None Review of Systems Constitutional: Denies: Chills, Fever, Malaise, Night sweats Eyes: Denies: Eye discharge, Eye pain ENT: Denies: Congestion, Ear pain, Epistaxis Respiratory: Denies: Cough, Dyspnea Cardiovascular: Reports: Chest pain. Denies: Dyspnea on exertion Endocrine: Denies: Fatigue, Heat or cold intolerance Gastrointestinal: Denies: Abdominal pain, Nausea, Vomiting Genitourinary: Denies: Incontinence, Retention Musculoskeletal: Denies: Arthralgia, Back pain Skin: Denies: Bruising, Change in color Neurological: Denies: Abnormal gait, Confusion, Headache, Seizure Psychiatric: Denies: Anxiety Hematological/Lymphatic: Denies: Anemia, Blood Clots Past Medical History - SOCIAL HISTORY Smoking Status: Light tobacco smoker (<10/day) Alcohol Use: None Drug Use: None - RESPIRATORY Hx Respiratory Disorders: Yes Hx Asthma: Yes (currently not using inhaler, does not have one) Hx Bronchitis: Yes - CARDIOVASCULAR Hx Cardio Disorders: No - NEURO Hx Neuro Disorders: Yes Hx Headaches: Yes (occassionally) - GI Hx GI Disorders: Yes Hx Reflux: Yes (occassionally will take an acid personal carer-otc) - Hx Genitourinary Disorders: No - ENDOCRINE Hx Endocrine Disorders: No - MUSCULOSKELETAL Hx Musculoskeletal Disorders: Yes - PSYCH Hx Psych Problems: Yes Hx Anxiety: Yes (sometimes) - HEMATOLOGY/ONCOLOGY Hx Hematology/Oncology Disorders: No Family Medical History Any Significant Family History?: Yes Hx Cancer: Grandparents *Cancer Comment: grandfather-liver/pancreas Hx Diabetes: Grandparents Hx Heart Disease: Father Physical Exam - General General Appearance: Alert, Oriented x3, Cooperative, No acute distress, Other ( Patient is on her mobile phone throughout the duration of her ED evaluation in no distress, watching videos.) Limitations: No limitations - Head Head exam: Atraumatic, Normocephalic, Normal inspection Head exam detail: negative: Abrasion, Contusion, Harper's sign, General tenderness, Hematoma, Laceration - Eye Eye exam: Normal appearance. negative: Conjunctival injection, Periorbital swelling, Periorbital tenderness, Scleral icterus - ENT Ear exam: negative: Auricular hematoma, Auricular trauma Nasal Exam: negative: Active bleeding, Discharge, Dried blood, Foreign body Mouth exam: negative: Drooling, Laceration, Muffled voice, Tongue elevation - Neck Neck exam: Normal inspection. negative: Meningismus, Tenderness - Respiratory Respiratory exam: Normal lung sounds bilaterally. negative: Rales, Respiratory distress, Rhonchi, Stridor - Cardiovascular Cardiovascular Exam: Regular rate, Normal rhythm, Normal heart sounds - GI/Abdominal GI/Abdominal exam: Soft. negative: Rebound, Rigid, Tenderness - Rectal Rectal exam: Deferred - exam: Deferred - Extremities Extremities exam: Normal inspection. negative: Pedal edema, Tenderness - Back Back exam: Denies: CVA tenderness (R), CVA tenderness (L) - Neurological Neurological exam: Alert, Normal gait, Oriented X3 - Psychiatric Psychiatric exam: Normal affect, Normal mood - Skin Skin exam: Normal color. negative: Abrasion Type of lesion: negative: abrasion Course Vital Signs 12/08/18 12/08/18 23:45 23:47 Temperature 97.9 F Pulse Rate 72 Pulse Rate [ 72 Pulse Ox Probe] Respiratory 20 Rate Blood Pressure 116/73 Blood Pressure 116/73 [Left Arm] Pulse Ox 100 - Reevaluation(s) Reevaluation #1: 12/08/18 23:52 EKG: NSR 67 Normal axis, normal intervals No acute ST-T wave changes PERC clinical decision rule was applied, and the patient does not have any of the following: -Age > 50 years -Pulse > 100 -Oxygen Saturation < 94% -History of Hemoptysis -Unilateral leg swelling -History or PE/DVT -Recent surgery or Trauma -Oral contraceptive/Hormone use Patient was seen and examined, no cardiac risk factor in her history. Symptoms have been present for 8 hours, constant per patient. Patient is PERC negative. Lungs sounds are normal, vitals are normal on examination. Patient appears stable for discharge at this time. Disposition Disposition: Discharge Clinical Impression: Chest wall muscle strain Qualifiers: Encounter type: initial encounter Qualified Code(s): S29.011A - Strain of muscle and tendon of front wall of thorax, initial encounter Disposition: Home, Self-Care Condition: (2) Stable Additional Instructions: Return to ED if your symptoms worsen or if you have any concerns. Follow-up with your family doctor in 3-5 days as directed. Forms: Patient Portal Access Time of Disposition: 23:53 Quality - Quality Measures Quality Measures: N/A - Blood Pressure Screening Does Patient Have Any of the Following: No Blood Pressure Classification: Normal BP Reading Systolic Measurement: 116 Diastolic Measurement: 73 Screening for High Blood Pressure: < Normal BP, F/U Not Required > [G8783]
== END 2018-12-09 00:03 | disposition home or self-care (01) ==
LOC: ER 23:42
DX: S29.011A Strain of muscle and tendon of front wall of thorax, initial encounter (principal); X58.XXXA Exposure to other specified factors, initial encounter; F17.210 Nicotine dependence, cigarettes, uncomplicated
CPT/HCPCS: 93005; 93010; 99284